=== PATIENT | male | born 1935 | race Caucasian/White ===

== ENCOUNTER → 2017-03-03 | Outpatient (CLI) | payer OTHER ==
[~2017-03-03] MED LIST: ALBU90OI INH; AZIT250 PO; AZIT500 PO; Advil200 M1 PO; BP MED?; Bactrim 400-801 EACH PO; CEFP200 PO; CEPH500 PO; Cardizem CD 24240 MG PO; DILT120 PO; DILT180; DILT300 PO; DUTA.5 PO; ELIQUIS5 MG PO; FAMO20; FLUT1DIS2 INH; GUAI600T33 PO; HIPREX1 GM PO; HYDACE5 PO; LANS30EC; LEVFLO500 PO; LISI5; LISI5 PO; LOSA50 PO; Levaquin750 MG PO; METO100ER PO; NITR.4SL SL; Omeprazole20 M1; PANT20 PO; PRAVASTATIN SOD10 MG PO; PRED10 PO; Prilosec Otc20 MG; TAMS.4ER; TAMS.4ER PO; VALS80
== END | disposition home or self-care (01) ==
LOC: LAB SHORT 10:05
DX: N39.0 Urinary tract infection, site not specified (principal); R30.9 Painful micturition, unspecified
CPT/HCPCS: 87086

== ENCOUNTER → 2017-06-04 | Outpatient (CLI) | payer OTHER ==
[~2017-06-04] MED LIST changes: -AZIT500 PO; -CEFP200 PO; -GUAI600T33 PO; -HIPREX1 GM PO; -NITR.4SL SL; -Omeprazole20 M1
== END ==
LOC: LAB SHORT 16:55 → OLS 16:55 → LAB 16:55
DX: N39.0 Urinary tract infection, site not specified (principal)
CPT/HCPCS: 87077; 87086; 87186

== ENCOUNTER → 2017-07-28 | Outpatient (CLI) | payer OTHER | LOC: LAB SHORT 11:08 → LAB 11:08 | DX: N39.0 Urinary tract infection, site not specified (principal); R30.0 Dysuria | CPT/HCPCS: 87077; 87086; 87186 ==

== ENCOUNTER → 2017-08-06 | Outpatient (CLI) | payer OTHER | LOC: LAB 11:11 → LAB SHORT 11:11 | DX: N39.0 Urinary tract infection, site not specified (principal) | CPT/HCPCS: 87086 ==

== ENCOUNTER → 2017-08-15 | Outpatient (CLI) | payer OTHER ==
[2017-08-15 19:58] LABS: CHOL/HDL RATIO 5.1; Cholesterol 133 mg/dL (50-200); HDL Cholesterol 26 mg/dL (>39); LDL/HDL RATIO 1.3; Low Density Lipoprotein Chol 34 mg/dL (0-110); Triglycerides 366 mg/dL (30-160); Very Low Density Lipoprot Chol 73 mg/dL (6-32)
== END | disposition home or self-care (01) ==
LOC: LAB SHORT 14:45 → LAB 14:45
DX: Z12.5 Encounter for screening for malignant neoplasm of prostate (principal); I25.10 Atherosclerotic heart disease of native coronary artery without angina pectoris
CPT/HCPCS: 80061; G0103

== ENCOUNTER 2017-10-17 05:47 | Day surgery (SDC) | payer OTHER ==
[~2017-10-17] VITALS: Ht 182.9 cm; Wt 113.6 kg
[~2017-10-17 05:47] MED LIST changes: +AZIT500 PO; +CEFP200 PO; +GUAI600T33 PO; +Omeprazole20 M1
[2017-10-17] MEDS ORDERED: HIPREX1 GM PO (06:34)
[2017-10-17] MEDS ORDERED: DILT120 PO (06:34)
[2017-10-17] MEDS ORDERED: NITR.4SL SL (06:35)
== END 2017-10-17 22:41 | disposition home or self-care (01) ==
LOC: MHTC 05:47
PROC: 5A2204Z Restoration of Cardiac Rhythm, Single (ICD-10-PCS; principal; 2017-10-17)
DX: I48.1 Persistent atrial fibrillation (principal); I10 Essential (primary) hypertension; E78.5 Hyperlipidemia, unspecified; Z88.8 Allergy status to other drugs, medicaments and biological substances; Z88.5 Allergy status to narcotic agent; Z88.1 Allergy status to other antibiotic agents; Z79.899 Other long term (current) drug therapy; Z79.01 Long term (current) use of anticoagulants
CPT/HCPCS: 92960; 93005; 93010; 99152; J2250; J3010; J7030

== ENCOUNTER → 2019-02-12 | Outpatient (CLI) | payer OTHER ==
[~2019-02-12] MED LIST changes: +HIPREX1 GM PO; +NITR.4SL SL
== END | disposition home or self-care (01) ==
LOC: EDSTATUS 10:02 → LAB 17:11 → LAB SHORT 17:11
DX: N39.0 Urinary tract infection, site not specified (principal)
CPT/HCPCS: 87086

== ENCOUNTER 2019-06-11 10:04 | Inpatient (IN) | payer OTHER ==
[~2019-06-11] VITALS: Ht 182.9 cm; Wt 119.7 kg
[~2019-06-11 10:04] MED LIST changes: -Omeprazole20 M1; +Omeprazole20 M1 PO
[2019-06-11 10:30] LABS: Hematocrit 39.5 % (37.0-53.0); Hemoglobin 12.2 g/dL (13.5-17.5); Mean Corpuscular HGB 29.3 pg (26.0-34.0); Mean Corpuscular HGB Conc 30.9 g/dL (31.5-36.5); Mean Corpuscular Volume 95 fL (80-100); Mean Platelet Volume 11.7 fL (9.1-12.4); Platelet Count 272 K/mm3 (150-400); RDW Coefficient Variation 13.8 % (11.7-14.2); RDW Standard Deviation 47.9 fL (35.1-46.3); Red Blood Cell Count 4.16 M/mm3 (4.30-5.90); White Blood Cell Count 24.84 K/mm3 (4.00-11.30)
[2019-06-11 10:43] LABS: Alanine Aminotransfer (ALT/SGP 23 U/L (12-78); Albumin, Blood 3.4 g/dL (3.4-5.0); Albumin/Globulin Ratio 1.1 (0.8-1.8); Alk Phos 44 U/L (50-136); Anion Gap 7 mmol/L (6-16); Aspartate Aminotrans (AST/SGOT 20 U/L (12-37); Bilirubin, Total 0.6 mg/dL (0.1-1.0); Blood Urea Nitrogen 51 mg/dL (8-24); Bun/Creatinine Ratio 67.7 (12.0-20.0); CO2, Blood 25 mmol/L (21-32); Calcium, Blood 8.8 mg/dL (8.5-10.1); Chloride, Blood 113 mmol/L (98-108); Creatinine, Blood 0.75 mg/dL (0.60-1.20); Globulin, Blood 3.1 g/dL (2.2-4.0); Glomerular Filtration Rate >60 (60-); Glucose, Blood 169 mg/dL (70-99); Magnesium, Blood 2.4 mg/dL (1.6-2.4); Potassium, Blood 4.6 mmol/L (3.5-5.5); Sodium, Blood 145 mmol/L (136-145); Total Protein, Blood 6.5 g/dL (6.4-8.2); Troponin I <0.015 ng/mL (0.000-0.040)
[2019-06-11 10:45] LABS: International Normalized Ratio 1.13
[2019-06-11 11:11] LABS: BASOPHILS PERCENT MAN 0 % (0-2); EOSINOPHILS ABSOLUTE MAN 0.24 K/mm3 (0.00-0.68); EOSINOPHILS PERCENT MAN 1 % (0-6); LYMPHOCYTES PERCENT MAN 60 % (21-46); MONOCYTES ABSOLUTE MAN 1.24 K/mm3 (0.16-1.47); MONOCYTES PERCENT MAN 5 % (4-13); NEUTROPHILS ABSOLUTE MAN 8.44 K/mm3 (1.96-9.15); SEG NEUTROPHILS PERCENT MAN 34 % (41-73); TOTAL CELLS COUNTED 100
[2019-06-11 11:40] LABS: Source, Urine Voided
[2019-06-11 11:46] LABS: Bilirubin, Urine Neg (Neg); Blood, Urine 4+ (Neg); Glucose Qualitative, Urine Neg (Neg); Ketones, Urine Neg (Neg); Leukocyte Esterase, Urine 3+ (Neg); Nitrite, Urine Neg (Neg); Protein, Urine 2+ (Neg); Urobilinogen, Urine NORM (Normal)
[2019-06-11 11:52] LABS: Appearance, Urine Hazy (Clear); Bacteria Mod /hpf; Color, Urine Yellow (P-Yellow); Red Blood Cells, Urine TNTC /hpf (0-2); Squamous Epithelial Cells Not Seen /hpf (Few); White Blood Cells, Urine TNTC /hpf (0-5)
[2019-06-11] MEDS ORDERED: ALBU2.5V5 NEB (12:19)
[2019-06-11 12:41] LABS: Stool Occult Blood Guaiac 1 Pos (Neg)
[2019-06-11 14:34] LABS: Hematocrit 33.3 % (37.0-53.0); Hemoglobin 10.3 g/dL (13.5-17.5)
[2019-06-11 16:32] LABS: Bilirubin, Urine Neg (Neg); Blood, Urine 4+ (Neg); Glucose Qualitative, Urine Neg (Neg); Ketones, Urine Neg (Neg); Leukocyte Esterase, Urine 3+ (Neg); Nitrite, Urine Neg (Neg); Protein, Urine 2+ (Neg); Source, Urine Catheter; Specific Gravity, Urine 1.015 (1.003-1.022); Urobilinogen, Urine NORM (Normal)
[2019-06-11 16:33] LABS: Appearance, Urine Hazy (Clear); Color, Urine Yellow (P-Yellow)
[2019-06-11 16:42] LABS: White Blood Cells, Urine 50-100 /hpf (0-5)
[2019-06-11 16:43] LABS: Bacteria Many /hpf; Squamous Epithelial Cells Few /hpf (Few)
--- NOTE | 2019-06-11 19:13 | NUR ---
RELINQUISHED PATIENT CARE.
--- NOTE | 2019-06-11 19:17 | NUR ---
PATIENT ARRIVED FROM ED WITH A FIB IN 110S. AFTER GETTING UP AND WALKING TO BATHROOM, HR WENT UP TO 200S AND STAYED IN 180S-190S. DR. VERA NOTIFIED, CARDIZEM DRIP STARTED AND TITRATED TO 10 MG/HR. PATIENT ASYMPTOMATIC THROUGH EPISODE. WITH TITRATION, HR CAME DOWN TO 110S-130S. BP WENT FROM 120 SBP TO 90S SBP. PLAN IS FOR PATIENT TO USE URINAL UNTIL HEART RATE IS WELL CONTROLLED. PATIENT HAD ONE SMALL, TARRY STOOL ONCE HERE IN UNIT. PATIENT IS ALERT AND ORIENTED. NO COMPLAINTS OF SOB, NO CHEST PAIN/PRESSURE. PLAN IS FOR PATIENT TO HAVE SCOPE IN THE MORNING, NPO AT MIDNIGHT.
[2019-06-11 20:15] LABS: Hematocrit 30.5 % (37.0-53.0); Hemoglobin 9.4 g/dL (13.5-17.5)
[2019-06-12 02:10] LABS: Hematocrit 26.4 % (37.0-53.0); Hemoglobin 8.2 g/dL (13.5-17.5); Mean Corpuscular HGB 29.6 pg (26.0-34.0); Mean Corpuscular HGB Conc 31.1 g/dL (31.5-36.5); Mean Corpuscular Volume 95 fL (80-100); Mean Platelet Volume 11.4 fL (9.1-12.4); Platelet Count 207 K/mm3 (150-400); RDW Coefficient Variation 14.4 % (11.7-14.2); RDW Standard Deviation 49.6 fL (35.1-46.3); Red Blood Cell Count 2.77 M/mm3 (4.30-5.90); White Blood Cell Count 21.15 K/mm3 (4.00-11.30)
[2019-06-12 02:29] LABS: Alanine Aminotransfer (ALT/SGP 19 U/L (12-78); Albumin, Blood 2.7 g/dL (3.4-5.0); Albumin/Globulin Ratio 1.1 (0.8-1.8); Alk Phos 29 U/L (50-136); Anion Gap 5 mmol/L (6-16); Aspartate Aminotrans (AST/SGOT 10 U/L (12-37); Bilirubin, Total 0.4 mg/dL (0.1-1.0); Blood Urea Nitrogen 57 mg/dL (8-24); Bun/Creatinine Ratio 69.5 (12.0-20.0); CO2, Blood 25 mmol/L (21-32); Calcium, Blood 8.1 mg/dL (8.5-10.1); Chloride, Blood 116 mmol/L (98-108); Creatinine, Blood 0.82 mg/dL (0.60-1.20); Globulin, Blood 2.4 g/dL (2.2-4.0); Glomerular Filtration Rate >60 (60-); Glucose, Blood 152 mg/dL (70-99); Sodium, Blood 146 mmol/L (136-145); Total Protein, Blood 5.1 g/dL (6.4-8.2)
[2019-06-12 02:35] LABS: BAND PERCENT MAN 1 % (0-8); BASOPHILS PERCENT MAN 0 % (0-2); EOSINOPHILS ABSOLUTE MAN 0.21 K/mm3 (0.00-0.68); EOSINOPHILS PERCENT MAN 1 % (0-6); LYMPHOCYTES PERCENT MAN 44 % (21-46); MONOCYTES ABSOLUTE MAN 0.63 K/mm3 (0.16-1.47); MONOCYTES PERCENT MAN 3 % (4-13); NEUTROPHILS ABSOLUTE MAN 10.99 K/mm3 (1.96-9.15); SEG NEUTROPHILS PERCENT MAN 51 % (41-73); TOTAL CELLS COUNTED 100
--- NOTE | 2019-06-12 05:00 | NUR ---
SHIFT SUMMARY. ORIENTED ALL SHIFT. DOZING ON AND OFF . TROUBLE W/ IV SITES AND DELAYS IN PROTONIX AND THEN INFILTRATED WITHIN SHORT TIME. CARDIZEM AT 10 MG ALL NOC UNTIL 0500 THEN 15 MG. HR. FREQUENTLY AF HR AVERAGES 113-125 WITH VERY SUDDEN BURST IN PERIODS OF RATE TO 150-160. NOTED THE ONE TIME UP TO BSC AND PASSED FLATUS ONLY AFTER HAVING VERY SMALL PINK STREAKED DK BROWN STOOL ON SANCHEZ PAD. NO FURTHER STOOL ALL NOC. AND HR SEEMED UP TO 200 , WITH THIS ACTIVITY. USED URINAL ALL NOC AND HR SPIKE NOT USUALLY RELATED TO EXERTION . NOTED IT DID DROP TO ONE TEENS - 120 VERY QUICKLY. WORE CPAP ALL NOC W/ 2L BLEED IN.WNL SAT. REPORTED PER HOME REQUESTING STAFF TO STRAIGHT CATH HE WAS GOING TO BED.NO URGE TO VOID BUT THIS WAS STANDARD. STRAIGHT CATH RETURNED NO URINE AND BLADDED SCAN CONCURRED NO URINE 16 ML SHOWED . VOIDING QS ALL NOC .NPO ALL NOC.
--- NOTE | 2019-06-12 06:40 | NUR ---
FULL REPORT TO DAY SURGERY AND THEY REPORTED TO SG ABEL THAT VERY LABILE AF HR ON 10-15 MG/ HR CARDIZEm
--- NOTE | 2019-06-12 06:53 | NUR ---
[facility]TO [facility] ADMISSION TO UNIT STARTED. CALL TO DUE TO IRREGULAR PULSE RATE UP TO 150'S PER FLOOR RN WITH ACTIVITY
--- NOTE | 2019-06-12 06:54 | NUR ---
DR STATES HAVE ANNESTHESIA EVALUATE
--- NOTE | 2019-06-12 08:07 | NUR ---
06/12/19 0807 Weston Ferrell See Anesthesia record. Bite Block Placed. History, Chart, Medications and Allergies reviewed before start of procedure. MONITOR INTACT WITH CONTINUOUS PULSE OXIMETRY AND INTERMITTENT BP. O2 VIA N/C INTACT THROUGHOUT SEDATION/PROCEDURE.
[2019-06-12 09:12] LABS: Performing Lab SYMBIODX; Test Name FLOW CYTOMETRY
[2019-06-12 09:44] LABS: Hematocrit 24.2 % (37.0-53.0); Hemoglobin 7.4 g/dL (13.5-17.5)
--- NOTE | 2019-06-12 12:24 | NUR ---
Spiritual care visit conducted. Patient tells me about his medical conditions, his and his bijal (patient attends [facility] in [place]). Patient tells me his concerns about his health. I listen empathically, normalize patient's experience and provide prayer. Patient responds well and shows signs of reduced stress. I will continue to remain available to patient and family.
[2019-06-12 15:08] LABS: Hematocrit 25.3 % (37.0-53.0); Hemoglobin 7.9 g/dL (13.5-17.5)
--- NOTE | 2019-06-12 16:27 | NUR ---
SHIFT SUMMARY PT A&Ox3; CALM AND COOPERATIVE WITH CARE. SBA TO BSC. PT HAD EDG THIS AM; SMALL AMOUNT OF BLACK/MAROON TARRY STOOL NOTIED THIS AM; PT RECIVING 2 UNITS PRBC, APPEARS TO BE TOLERATING WELL. PT DENIES PAIN, SOB, NAUSEA, DIZZINES AND CHEST PAIN/PRESSURE. PT TITRATED OFF CARDIZEM DRIP; HR 90-100'S. BP THIS AM HYPOTENSICE; NOTIFIED DR ABEL; CONTINUES TO WATCH; BP HAS BEEN STABLE FOR MAJORITY OF SHIFT. NOTIIFED DR HERNANDEZ OF 1459 H&H; DR TO PLACE NEW ORDERS. NM STUDY ORDERED; PLANS TO COMPLETE 06/13/19. PICC LINE PLACED DUE TO MULTIPLE INFLITARTED IV AND DIFFICULTY PLACING. OTHER VSS. NO OTHER ACUTE CHANGES NOTED. WILL CONTINUE TO MONITOR UNTIL REPORT GIVEN TO ONCOMING RN.
--- NOTE | 2019-06-12 19:20 | NUR ---
NOTIFIED DR ABEL THAT 2ND UNIT OF PRBC COMPLETED AND THAT LUNG SOUND CRACKLS AND DIMINISHED; NEW ORDERS FOR H&H AT 1999 AND LASIX 40 MG IV ONCE.
--- NOTE | 2019-06-12 20:10 | NUR ---
ASSUMED CARE OF PATIENT AT [facility] 191 FROM FLORY Weiss RN. PATIENT ALERT AND ORIENTED X4; IRRITABLE AT TIMES; REPORTS HASNT SLEPT IN A WHILE. PATIENT DENIES PAIN, NUMBNESS, TINGLING, DIZZINESS OR NASUEA. PATIENT ONE ASSIST TO BEDSIDE COMMODE AND USES URINAL IN BED. PATIENT REPORTS HE NORMALLY STRAIGHT CATHS AT HOME ONCE A NIGHT; BLADDER SCAN 628; HEART RATE UP TO 170'S WITH AMBULATION AT TIMES; DYSPNEA W/ EXCERTION; WILL CALL HOSPITALIST. AFIB ON TELE W/ A RATE OF 90-100; CARDIZEM GTT TITRATED DOWN TO 5ML/HR. OXYGEN SATURATION ABOVE 90% ON ROOM AIR OR 2LPM BLEED INTO CPAP. IVF INFUSING PER ORDER. PICC TO CHAVEZ. PATIENT CURRENTLY RESTING IN BED; CALL LIGHT IN REACH; BED IN LOWEST POSISTION; BED ALARM ON; WILL CONTINUE TO MONITOR AND ASSESS UNTIL END OF SHIFT.
[2019-06-12 20:16] LABS: Hematocrit 24.6 % (37.0-53.0); Hemoglobin 7.8 g/dL (13.5-17.5)
--- NOTE | 2019-06-12 21:50 | NUR ---
DR. ABLE CALLED; H/H FOR 0000; DR. ABEL WILL BE AWAKE TO SEE RESULTS AND WILL PUT IN ORDERS FOR RBC IF DROPS FURTHER; DOWN TO 7.8 AFTER 2X RBC TODAY. ALSO CALLED WIL TUCKER TO REPORT PATIENT STRAIGHT CATHS AT HOME AND INCREASED HR W/ AMBULATION; BLADDER SCAN OF 628 AND DYSPNEA; ORDER FOR COUDE CATHETER.
[2019-06-13 00:42] LABS: Hematocrit 22.5 % (37.0-53.0); Hemoglobin 7.1 g/dL (13.5-17.5)
--- NOTE | 2019-06-13 01:00 | NUR ---
CALLED FOR UPDATE; PATIENT TO RECIEVE 2X RBC WITH 40MG IV LASIX AFTER 2 RBC INFUSED; H/H 30 MIN AFTER LAST RBC INFUSED. NM TO BE CALLED ABOUT GETTING TEST DONE EARLIER IN AM; NURSING CALENDER SUPERVISOR JANIS UPDATED AND WILL CALL NM IN AM WHEN OPEN.
--- NOTE | 2019-06-13 02:35 | NUR ---
PATIENT TEMPORAL TEMP OF 99 DEGREES; REPORTS ROOM IS TOO WARM; TEMPERATURE SET OF FULL A/C FOR AN HOUR WITH NO CHANGE IN ROOM TEMP; MAINTENANCE CALLED.
--- NOTE | 2019-06-13 04:14 | NUR ---
PATIENT TEMP 98.7; OTHER VITAL STABLE; AFIB HEART RATE STARTING TO TOUCH HIGH 80'S ON TELE; ROOM TEMPERATURE COOLER NOW.
--- NOTE | 2019-06-13 05:52 | NUR ---
THIS RN STAYED IN THE ROOM WITH PATIENT FOR FIRST FIFTEEN MINUTES OF BOTH RBC INFUSIONS; NO S/S OF REACTION NOTED. PATIENT SLEPT ABOUT SIX HOURS OF BROKEN SLEEP WITH CPAP ON. VSS. HEART RATE AVERAGING HIGH 80'S. WILL CONTINUE TO MONITOR AND ASSESS UNTIL END OF SHIFT.
--- NOTE | 2019-06-13 06:41 | NUR ---
NM UPDATE; NM WILL CALL PCU AROUND [phone] AND MAY HAVE A TIME FOR STUDY; OVERBOOKED.
--- NOTE | 2019-06-13 07:28 | NUR ---
ASSUMED CARE: PT WAS USING BEDSIDE COMMODE UPON ENTERING ROOM. MAROON STOOL NOTED, RECIEVING UNIT OF BLOOD AT THIS TIME. ALERT AND ORIENTED, COOPERATIVE. CARDIZEM GTT AT 5 MG/HR AT THIS TIME. AFIB 1TEENS AT THIS TIME. NO MAYNARD AT THIS TIME. PT STATES HE DOES NOT HAVE TROUBLE VOIDING DURING THE DAY. WILL CONTINUE TO MONITOR
[2019-06-13 10:12] LABS: Hematocrit 28.1 % (37.0-53.0); Hemoglobin 9.1 g/dL (13.5-17.5)
--- NOTE | 2019-06-13 11:03 | NUR ---
PT TAKEN TO IMAGING AT THIS TIME.
[2019-06-13 13:55] LABS: Hematocrit 26.6 % (37.0-53.0); Hemoglobin 8.6 g/dL (13.5-17.5)
--- NOTE | 2019-06-13 15:02 | NUR ---
PT TAKEN TO IMAGING FOR CT ANGIO. DR ABEL CALLED AND STATED THAT PRIOR IMAGING SHOWED POSSIBLE BLEED IN SMALL INTESTINE AND THAT HE ALREADY SPOKE WITH DR MOORE AND CTA IS HIS RECOMMENDATION FOR POSSIBLE REPAIR. WEALTH MANAGEMENT DIRECTOR AWARE
--- NOTE | 2019-06-13 15:47 | NUR ---
Spiritual care visit conducted. Patient is lying in bed and resting but awakens easily to the sound of his name. Patient tells me that he is improving and will probably get to go home in the next day or two. Patient asks if I would say a prayer for him. I gladly provide prayer for both the patient and his at home. Patient verbalizes gratitude for my visit and the prayer. I will continue to remain available to patient and family.
[2019-06-13 17:34] LABS: Hematocrit 27.7 % (37.0-53.0); Hemoglobin 8.9 g/dL (13.5-17.5)
--- NOTE | 2019-06-13 18:33 | NUR ---
SHIFT SUMMARY: PT HAD BLEEDING STUDY WELL CTA DONE THIS SHIFT. ATTEMPTED TO CALL DR ABEL WITH CTA RESULT. MESSAGE LEFT. CARDIZEM GTT OFF SINCE 1330. PICC LINE DRESSING CHANGED THIS SHIFT. DENIES NEEDS OR CONCERNS. MAROON STOOLS WITH BMS. DR JOYCE AWARE.
--- NOTE | 2019-06-13 22:43 | NUR ---
DR OSCAR MOORE INTO SEE PATIENT. NO NEW ORDERS GIVEN AT THIS TIME.
[2019-06-14 00:58] LABS: Hematocrit 22.9 % (37.0-53.0); Hemoglobin 7.4 g/dL (13.5-17.5)
--- NOTE | 2019-06-14 01:10 | NUR ---
UPDATE DR ZHANG NOTIFIED OF H&H RESULTS. NO ORDERS RECEIVED AT THIS TIME.
--- NOTE | 2019-06-14 06:06 | NUR ---
SHIFT SUMMARY PATIENT PLEASENT AND COOPERATIVE THROUGHOUT THE NIGHT. PATIENT APPEARED TO NAP WELL ON AND OFF LAST NIGHT. PATIENT USED HIS CPAP THROUGHOUT MOST OF THE NIGHT. CONTINUOUS BIOX IN PLACE. PATIENT'S HEART RATE TRENDED IN THE 90'S-110'S LAST NIGHT. IV FLUIDS RUNNING PER ORDERS. PATIENT APPEARED TO BE VOIDING WELL LAST NIGHT. WILL CONTINUE TO MONITOR PATIENT AND REPORT TO ONCOMING RN.
[2019-06-14 06:17] LABS: BASOPHILS ABSOLUTE AUTO 0.04 K/mm3 (0.00-0.23); BASOPHILS PERCENT AUTO 0 % (0-2); EOSINOPHILS ABSOLUTE AUTO 0.32 K/mm3 (0.00-0.68); EOSINOPHILS PERCENT AUTO 2 % (0-6); Hematocrit 21.5 % (37.0-53.0); Hemoglobin 6.9 g/dL (13.5-17.5); Mean Corpuscular HGB 30.1 pg (26.0-34.0); Mean Corpuscular HGB Conc 32.1 g/dL (31.5-36.5); Mean Corpuscular Volume 94 fL (80-100); Mean Platelet Volume 11.6 fL (9.1-12.4); NRBC ABSOLUTE 0.06 K/mm3 (0.00-0.02); NRBC Auto 0.3 /100 WBC (0.0-0.2); Platelet Count 155 K/mm3 (150-400); RDW Coefficient Variation 16.9 % (11.7-14.2); RDW Standard Deviation 55.1 fL (35.1-46.3); Red Blood Cell Count 2.29 M/mm3 (4.30-5.90); White Blood Cell Count 21.77 K/mm3 (4.00-11.30)
[2019-06-14 06:19] LABS: IMMATURE GRAN ABSOLUTE AUTO 0.48 K/mm3 (0.00-0.10); IMMATURE GRAN PERCENT AUTO 2 % (0-1); LYMPHOCYTES ABSOLUTE AUTO 11.99 K/mm3 (0.84-5.20); LYMPHOCYTES PERCENT AUTO 55 % (21-46); MONOCYTES PERCENT AUTO 5 % (4-13); NEUTROPHILS ABSOLUTE AUTO 7.94 K/mm3 (1.96-9.15); NEUTROPHILS PERCENT AUTO 36 % (41-73)
[2019-06-14 06:35] LABS: Alanine Aminotransfer (ALT/SGP 22 U/L (12-78); Albumin, Blood 2.5 g/dL (3.4-5.0); Albumin/Globulin Ratio 1.1 (0.8-1.8); Alk Phos 28 U/L (50-136); Anion Gap 1 mmol/L (6-16); Aspartate Aminotrans (AST/SGOT 18 U/L (12-37); Bilirubin, Total 0.6 mg/dL (0.1-1.0); Blood Urea Nitrogen 48 mg/dL (8-24); Bun/Creatinine Ratio 70.9 (12.0-20.0); CO2, Blood 31 mmol/L (21-32); Calcium, Blood 7.6 mg/dL (8.5-10.1); Chloride, Blood 115 mmol/L (98-108); Creatinine, Blood 0.68 mg/dL (0.60-1.20); Globulin, Blood 2.3 g/dL (2.2-4.0); Glomerular Filtration Rate >60 (60-); Glucose, Blood 144 mg/dL (70-99); Potassium, Blood 3.7 mmol/L (3.5-5.5); Sodium, Blood 147 mmol/L (136-145); Total Protein, Blood 4.8 g/dL (6.4-8.2)
--- NOTE | 2019-06-14 06:55 | NUR ---
UPDATE DR JOYCE AWARE OF PATIENT'S H&H RESULTS. ORDERS ENTERED.
--- NOTE | 2019-06-14 07:38 | NUR ---
ASSUMED CARE: PT RESTING IN BED AT THIS TIME. CONTACTED DR MOORE TO DETERMINE PLAN. STATES TO FEED BREAKFAST THEN NPO AFTER. PT TO RECIEVE 2 UNITS PRBCS WELL.
--- NOTE | 2019-06-14 13:51 | NUR ---
TELE CALLED AND STATED PT'S HR INCREASING INTO 170S-190S. PT WAS USING URINAL AT THIS TIME. 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 DISCUSSED WITH CIRCULAR CLERK.
--- NOTE | 2019-06-14 17:51 | NUR ---
PT TAKEN TO CENTERLESS GRINDER SET UP OPERATOR AT THIS TIME. ESCORTED VIA BED BY HEART CENTER STAFF.
--- NOTE | 2019-06-14 19:10 | NUR ---
PT TRANSFERRED FROM PEDIATRICS PHYSICIAN TO ICU 10 VIA BED WITH MARIE AT BEDSIDE. PT HAS R GROIN 6 FR ART LINE IN PLACE. MONIOTR SHOWS AFIB RVR WITH HR 120'S. PT STATES HE FEEL S FINE, JUST A BIT THIRSTY. WILL CALL TO GIVE AN UPDATE. REPORT TO VIELKA RUDOLPH.
--- NOTE | 2019-06-14 20:13 | NUR ---
ASSUMED PT CARE AT 1915 PT ARRIVED FROM ROOM SERVICE WAITER/WAITRESS S/P SHEATH PLACEMENT TO RIGHT GROIN FOR ARTERIAL ACCESS. PER REPORT BLEED IS UNKNOWN AT THIS TIME. PT CLAIMS HIS LAST BLOODY STOOL WAS AROUND 1300 TODAY. VS STABLE AT THIS TIME. RHYTHM APPEARS TO BE AFIB WITH HR 110-130S; INCREASES WITH ANY MOVEMENT OR EXERTION. PT STATES HE TAKES ELIQUIS AT HOME FOR HIS AFIB. PT IS ON ROOM AIR WITH EXPIRATORY WHEEZES NOTED T/O ALL LOBES; OTHERWISE, CLEAR. ABDOMEN IS ROUND, SOFT WITH ACTIVE BTX4. MINIMAL, NON-PITTING EDEMA NOTED TO BLE'S. GENERALIZED EDEMA TO BUE'S. PICC LINE NOTED TO RIGHT UPPER ARM THAT IS SALINE LOCKED AT THIS TIME. PT STATES HE IS CONTINENT OF BLADDER AND WILL ASK FOR URINAL HE NEEDS IT. HOWEVER, HE DID STATE AT HOME HE OCCASIONALLY HAS TO SELF CATH AT NIGHT D/T URINARY RETENTION; WILL CONTINUE TO MONITOR AND ASSESS ON AN ONGOING BASIS. CHARGE NURSE, ABEL, CALLED AND UPDATED REGARDING PT'S STATUS. PT GRATEFUL AND HAS BEEN PLEASANT AND COOPERATIVE WITH CARES. DEMONSTRATES UNDERSTANDING OF CURRENT NAT CONDITION AND HAS NO FURTHER QUESTIONS. PLAN OF CARE EXPLAINED TO PT WITH VERBAL UNDERSTANDING. CALL LIGHT WITHIN REACH AND PT IS ABLE TO MAKE NEEDS KNOWN.
[2019-06-14 20:24] LABS: Hematocrit 25.4 % (37.0-53.0); Hemoglobin 8.5 g/dL (13.5-17.5)
[2019-06-14 21:30] LABS: Source, Urine Catheter
[2019-06-14 21:38] LABS: Appearance, Urine Clear (Clear); Bilirubin, Urine Neg (Neg); Blood, Urine 2+ (Neg); Color, Urine Yellow (P-Yellow); Glucose Qualitative, Urine Neg (Neg); Ketones, Urine Neg (Neg); Leukocyte Esterase, Urine 2+ (Neg); Nitrite, Urine Neg (Neg); Protein, Urine Neg (Neg); Specific Gravity, Urine 1.015 (1.003-1.022); Urobilinogen, Urine NORM (Normal)
[2019-06-14 21:45] LABS: Bacteria Many /hpf; Hyaline Casts 0-2 /lpf (0-2); Squamous Epithelial Cells Not Seen /hpf (Few); White Blood Cells, Urine 50-100 /hpf (0-5)
[2019-06-15 03:36] LABS: Hematocrit 24.2 % (37.0-53.0); Hemoglobin 7.9 g/dL (13.5-17.5); Mean Corpuscular HGB 30.4 pg (26.0-34.0); Mean Corpuscular HGB Conc 32.6 g/dL (31.5-36.5); Mean Corpuscular Volume 93 fL (80-100); Mean Platelet Volume 11.4 fL (9.1-12.4); NRBC ABSOLUTE 0.09 K/mm3 (0.00-0.02); NRBC Auto 0.4 /100 WBC (0.0-0.2); Platelet Count 152 K/mm3 (150-400); RDW Standard Deviation 51.3 fL (35.1-46.3); White Blood Cell Count 22.39 K/mm3 (4.00-11.30)
[2019-06-15 03:56] LABS: Alanine Aminotransfer (ALT/SGP 21 U/L (12-78); Albumin, Blood 2.6 g/dL (3.4-5.0); Albumin/Globulin Ratio 1.1 (0.8-1.8); Alk Phos 29 U/L (50-136); Anion Gap 4 mmol/L (6-16); Aspartate Aminotrans (AST/SGOT 19 U/L (12-37); BASOPHILS PERCENT MAN 0 % (0-2); Bilirubin, Total 0.9 mg/dL (0.1-1.0); Blood Urea Nitrogen 35 mg/dL (8-24); Bun/Creatinine Ratio 53.4 (12.0-20.0); CO2, Blood 28 mmol/L (21-32); Calcium, Blood 7.5 mg/dL (8.5-10.1); Chloride, Blood 113 mmol/L (98-108); Creatinine, Blood 0.66 mg/dL (0.60-1.20); EOSINOPHILS ABSOLUTE MAN 0.44 K/mm3 (0.00-0.68); EOSINOPHILS PERCENT MAN 2 % (0-6); Globulin, Blood 2.3 g/dL (2.2-4.0); Glomerular Filtration Rate >60 (60-); Glucose, Blood 141 mg/dL (70-99); LYMPHOCYTES ABSOLUTE MAN 7.83 K/mm3 (0.84-5.20); LYMPHOCYTES PERCENT MAN 35 % (21-46); METAMYELOCYTE ABSOLUTE MAN 0.22 K/mm3 (0.00-0.00); METAMYELOCYTE PERCENT MAN 1 % (0-0); MONOCYTES ABSOLUTE MAN 0.44 K/mm3 (0.16-1.47); MONOCYTES PERCENT MAN 2 % (4-13); NEUTROPHILS ABSOLUTE MAN 13.43 K/mm3 (1.96-9.15); Potassium, Blood 3.3 mmol/L (3.5-5.5); SEG NEUTROPHILS PERCENT MAN 60 % (41-73); Sodium, Blood 145 mmol/L (136-145); TOTAL CELLS COUNTED 100; Total Protein, Blood 4.9 g/dL (6.4-8.2)
--- NOTE | 2019-06-15 05:41 | NUR ---
END OF SHIFT SUMMARY PT HAS REMAINED STABLE T/O NIGHT. SHEATH TO RIGHT GROIN REMAINS IN PLACE WITH STABLE BP'S; SEE FLOWSHEET. AFIB WITH HR 80-90'S WHEN PT IS SLEEPING AND LOW 100'S-110'S WHILE AWAKE. PT IS ALERT AND ORIENTED AND ABLE TO MAKE NEEDS KNOWN. UTILIZES CALL LIGHT APPROPRIATELY. LUNG SOUNDS REMAIN CLEAR UPON INSPIRATION T/O ALL LOBES WITH EXPIRATORY WHEEZES. NO COUGH. PT STATES AT BASELINE HE HAS A DRY, NON-PRODUCTIVE COUGH R/T COPD. ABDOMEN IS ROUND, NON-TENDER WITH ACTIVE BTX4. NO BM THIS SHIFT. PT ATTEMPTED ONCE AND WAS UNSUCCESSFUL. WHEN PERFORMING RAMBO CARE IT WAS NOTED THAT PT HAS BROWN/GREEN STOOL, POSSIBLY FROM FLATULENCE, THAT WAS CLEANED FROM HIS RECTAL AREA. CATHETER HAS REMAINED PATENT AND DRAINING TO GRAVITY; DARK, ISELA COLORED URINE. NO STAT LOCK IN PLACE D/T CATHETER LENGTH NOT LONG ENOUGH SO SAFELY SECURE TO INNER LEG WITHOUT TUGGING ON CATHETER ITSELF. 0.45% NS INFUSING AT 75MLS/HR VIA PICC LINE TO CHAVEZ. PT IS ABLE TO MAKE SLIGHT CHANGES IN HIPS; HOWEVER, REQUIRES ASSISTANCE WITH PROPER PILLOW POSITIONING TO RELIEVE PRESSURE FROM BACK AND BOTTOM. PT DIDN'T SLEEP MUCH OF THE NIGHT D/T BEING UNCOMFORTABLE FROM HAVING TO REMAIN SUPINE SECONDARY TO SHEATH IN RIGHT GROIN. PT IS CURRENTLY SLEEPING. WILL CONTINUE TO MONITOR UNTIL REPORT IS HANDED OFF TO ONCOMING RN.
--- NOTE | 2019-06-15 07:44 | NUR ---
ASSUMED CARE OF PATIENT AT 0715. AROUSES TO SPEECH, SLEPT POORLY O/N. AFEBRILE, VSS. RESP EVEN AND UNLABORED. HR IRREGULAR, RATE IN 80'S. CHAVEZ PICC SITE WITH ECCHYMOSIS AROUND INSERTION SITE. SIMILAR ECCHYMOSIS ON BALJIT. R FEM ART LINE SITE WNL, SOFT, NO ERYTHEMA. WEARING SCD'S. PLAN IS NPO AFTER 0930 FOR REPEAT EGD THIS AFTERNOON.
--- NOTE | 2019-06-15 08:18 | NUR ---
BP CHECKED ON LA COINCIDES WITH R FEM ART LINE BP.
--- NOTE | 2019-06-15 09:13 | NUR ---
SPOKE TO DR. MOORE BY PHONE, ASKED IF ART IS NOT NEEDED WOULD LIKE TO REMOVE IT. HE STATED THAT ART LINE LEFT IN PER DR. ABEL AND TO DIRECT ALL QUESTIONS TO THAT PROVIDER.
--- NOTE | 2019-06-15 09:35 | NUR ---
PT'S POTASSIUM LEVEL 3.3 ON THIS MORNING'S LABS. CALLED DR. ROMO'S OFFICE, LEFT MESSAGE TO REQUEST POTASSIUM REPLACEMENT.
--- NOTE | 2019-06-15 09:39 | NUR ---
SPOKE TO DR. ABEL BY PHONE, REPORTED THAT PT HEMODYNAMICALLY STABLE O/N, HGB DROPPED FROM 8.[address] BEYER HAS NO PLANS TO USE THE LINE FURTHER. DR. ABEL GAVE VERBAL ORDER OK TO REMOVE ART LINE.
--- NOTE | 2019-06-15 12:20 | NUR ---
REASSESSMENT: A&O X 3, PLEASANT, IS EAGER FOR EGD TODAY. AFIB HR 90-110, BP 110-130/50-65. HELPS WITH REPOSITIONING. LUNGS CLEAR WITH FAINT EXP WHEEZE IN UPPER LOBES, O2 SAT 95% RA, IN NAD. NO BM THUS FAR TODAY, BS ACTIVE X 4, DENIES ABD DISCOMFORT, IS PASSING FLATUS. DENIES PAIN OVERALL. IS NPO FOR EGD THIS AFTERNOON.
--- NOTE | 2019-06-15 14:39 | NUR ---
Initial palliative care consult: Claude is an 84 year old gentleman with a history of a-fib, COPD, neurogenic bladder with self cath, HTN, JAMAL. He was admitted to [facility] on 06/11/19. He was noted to have some GI bleeding which has been investigated and treated. Claude states he is feeling "On the mend" and denies any recurrent bleeding as far as he can tell. He reports he is to have a follow up test this afternoon to evaluate his GI bleed. He is hopeful to return home soon. He reports he had a GI bleed in the and had surgery to stop the bleed. He is unsure what his bleed was caused from back then. He states he lives with his , Jesús, of 61 years. They plan to remain "As independent as possible for as long as possible." He reports they were never "Blessed with children," he reports his suffered four miscarriages. He reports they both still drive, although he doesn't drive at night due to his macular degeneration. He denies any SOB, CP or N/V at this time. He denies any symptoms at this time. Had a discussion on code status with Claude. He is a full code and reports that he and his have some paperwork at home which he thinks might be advanced directives. When this underwriter mortgage loan explained what the AD was, he said that it sounded familiar. He states that he doesn't think he has a POLST form. Contacted medical records at [facility] as Dr. Yury Anderson is his PCP. [facility] doesn't have any AD or POLST on file. LM on the secure [place] POLST registry line to see if they have a POSLT form on file. Claude states he would look into the paperwork he has at home when he returns home. PC will continue to follow for symptom management and advanced care planning prn.
--- NOTE | 2019-06-15 17:02 | NUR ---
PATIENT TRANSFERRED TO DAY SURGERY AT 1659 VIA [facility] WITH DAY SURGERY RN FOR EGD. WILL TRANSFER TO PCU 13 AFTER PROCEDURE. REPORT GIVEN TO NORMAN RUDOLPH.
--- NOTE | 2019-06-15 17:19 | NUR ---
History, Chart, Medications and Allergies reviewed before start of procedure.Lungs clear T/O to Auscultation. Patient confirms NPO status and agrees with scheduled surgery. PT HAD ART LINE REMOVED OUT OF R GROIN. DRESSING CDI. DR ABEL AWARE THAT IT WAS PULLED AT 1300.
--- NOTE | 2019-06-15 18:18 | NUR ---
06/15/19 1818 LOBITO DEWEY History, Chart, Medications and Allergies reviewed before start of procedure. 3-LEAD EKG REVIEWED WITH PHYSICIAN PRIOR TO START OF PROCEDURE. O2 VIA N/C INTACT THROUGHOUT SEDATION/PROCEDURE. MONITOR INTACT WITH CONTINUOUS PULSE OXIMETRY AND INTERMITTENT BP. MAC WITH DR. STAPLETON.
[2019-06-16 04:44] LABS: BASOPHILS ABSOLUTE AUTO 0.04 K/mm3 (0.00-0.23); BASOPHILS PERCENT AUTO 0 % (0-2); EOSINOPHILS ABSOLUTE AUTO 0.32 K/mm3 (0.00-0.68); EOSINOPHILS PERCENT AUTO 2 % (0-6); Hematocrit 25.2 % (37.0-53.0); Hemoglobin 8.1 g/dL (13.5-17.5); IMMATURE GRAN ABSOLUTE AUTO 0.49 K/mm3 (0.00-0.10); IMMATURE GRAN PERCENT AUTO 3 % (0-1); LYMPHOCYTES ABSOLUTE AUTO 8.59 K/mm3 (0.84-5.20); LYMPHOCYTES PERCENT AUTO 47 % (21-46); MONOCYTES ABSOLUTE AUTO 0.84 K/mm3 (0.16-1.47); MONOCYTES PERCENT AUTO 5 % (4-13); Mean Corpuscular HGB 30.7 pg (26.0-34.0); Mean Corpuscular HGB Conc 32.1 g/dL (31.5-36.5); Mean Corpuscular Volume 96 fL (80-100); Mean Platelet Volume 11.7 fL (9.1-12.4); NEUTROPHILS ABSOLUTE AUTO 7.85 K/mm3 (1.96-9.15); NEUTROPHILS PERCENT AUTO 43 % (41-73); NRBC ABSOLUTE 0.05 K/mm3 (0.00-0.02); NRBC Auto 0.3 /100 WBC (0.0-0.2); Platelet Count 145 K/mm3 (150-400); RDW Coefficient Variation 17.6 % (11.7-14.2); RDW Standard Deviation 52.1 fL (35.1-46.3); Red Blood Cell Count 2.64 M/mm3 (4.30-5.90); White Blood Cell Count 18.13 K/mm3 (4.00-11.30)
[2019-06-16 04:59] LABS: Albumin, Blood 2.4 g/dL (3.4-5.0); Anion Gap 4 mmol/L (6-16); Blood Urea Nitrogen 25 mg/dL (8-24); Bun/Creatinine Ratio 39.7 (12.0-20.0); CO2, Blood 29 mmol/L (21-32); Calcium, Blood 7.5 mg/dL (8.5-10.1); Chloride, Blood 112 mmol/L (98-108); Creatinine, Blood 0.63 mg/dL (0.60-1.20); Glomerular Filtration Rate >60 (60-); Glucose, Blood 106 mg/dL (70-99); Magnesium, Blood 2.2 mg/dL (1.6-2.4); Potassium, Blood 3.4 mmol/L (3.5-5.5); Sodium, Blood 145 mmol/L (136-145)
[2019-06-16 05:02] LABS: BAND PERCENT MAN 1 % (0-8); BASOPHILS PERCENT MAN 0 % (0-2); EOSINOPHILS ABSOLUTE MAN 0.36 K/mm3 (0.00-0.68); EOSINOPHILS PERCENT MAN 2 % (0-6); LYMPHOCYTES PERCENT MAN 48 % (21-46); METAMYELOCYTE ABSOLUTE MAN 0.18 K/mm3 (0.00-0.00); METAMYELOCYTE PERCENT MAN 1 % (0-0); MONOCYTES ABSOLUTE MAN 0.72 K/mm3 (0.16-1.47); MONOCYTES PERCENT MAN 4 % (4-13); MYELOCYTE ABSOLUTE MAN 0.18 K/mm3 (0.00-0.00); MYELOCYTE PERCENT MAN 1 % (0-0); NEUTROPHILS ABSOLUTE MAN 7.97 K/mm3 (1.96-9.15); SEG NEUTROPHILS PERCENT MAN 43 % (41-73); TOTAL CELLS COUNTED 100
--- NOTE | 2019-06-16 05:58 | NUR ---
Shift Summary Pt arrived to PCU 13 at 1934 on 06/15 from day surgery (PT previously in ICU). Pt arrived on with Day Surgery RN, Ghazal, at bedside. Bedside report recieved and pt slide transferred into PCU 13 bed without difficulty. Pt drowsy but easily arrousable to verbal stimulus. Breathing even and unlabored on RA. VSS. Pt conversing appropriately, asking questions about procedure and retaining/recalling information accurately. This RN spoke with pt's and gave update. Pt also able to speak with . Dr. Rae called this RN and ordered 1uPRBC. Infusion completed per protocol with two RN verification. This RN remained with pt during first 15 minutes and obtained frequent vital signs. Pt exhibited no signs of transfusion reaction. Lung sounds assessed before, during, and after blood administration. Slight exp wheeze noted upon assessment, unchanged during infusion. Pt denies shortness of breath, itching, or rash. Normothermic. All VSS. Pt wore CPAP on and off throughout night. Pt states "i wear my CPAP at home but this one doesn't fit my face right". 1L LR infused per orders and NS and KCL infusing at this time per orders. Greer cath present upon transfer and placed for retention per report. No changes from initial assessment. Pt sleeping at this time. Able to take all medications whole with water. Will continue to monitor.
--- NOTE | 2019-06-16 06:28 | NUR ---
RIGHT HAND IV INFILTRATED. PIV REMOVED, ARM ELEVATED. EDEMA NOTED, NOT PITTING AT THIS TIME. PT INFORMED. DENIES PAIN. WILL CONTINUE TO MONITOR.
--- NOTE | 2019-06-16 10:31 | NUR ---
PT WAS ASSISTED TO THE BATHROOM BY THE RADIO MACHINIST, HEART MONITOR SHOWS INCREASED HEART RATE 150'S-200'S, PT MADE IT TO THE BATHROOM HAD A BOWEL MOVEMENT AND ASSISTED BACK TO BED. PT WAS NOT C/O ANY CHEST PAIN/PRESSURE OR DIZZINESS/FAINTING. DR REYNOSO WAS CALLED RECEIVED ORDER FOR EKG 12 LEAD, TO GIVE ONE TIME 20MG BOLUS OF CARDIZEM IF HR IS NOT GOING DOWN AND TO START ON TITRATING DOSE OF CARDIZEM DRIP 0-15MG/HR. ECG DONE AND SHOWED AFIB RVR HEART RATE WENT DOWN TO 100'S-120'S, PROVIDER WAS UPDATED ORDER TO CANCEL BOLUS AND START TITRATING DOSE OF CARDIZEM DRIP. BP SYSTOLIC AT 120'S, PT IS NOW RESTING IN BED WITH NO COMPLAINS. WILL MONITOR
--- NOTE | 2019-06-16 13:02 | NUR ---
PT ASSISTED IN THE BATHROOM AT THIS TIME, HR INCREASED TO 150'S CARDIZEM DRIP AT 10MG/HR RESTING HEART RATE RANGING 90'S-110'S, PT DENIES ANY CHEST PAIN/PRESSURE, SYSTOLIC BP'S 130'S, THE REST OF THE VITALS WNL. WILL MONITOR PATIENT
--- NOTE | 2019-06-16 18:15 | NUR ---
PT SUMMARY: PT CARDIZEM DRIP OFF AROUNG 1600 PT HRR RANGING 70'S-90'S, STILL INCREASES WITH EXERTION, PT HAD THERAPY TODAY WAS ABLE TO AMBULATE IN THE ROOM, PT DENIES ANY CHEST PAIN/PRESSURE. PT PLAN TO STAY COUPLE MORE DAYS FOR OBSERVATION FOR GI BLEED ISSUE. PT CURRENTLY RESTING IN BED SATS HAS BEEN ABOVE 97% ON ROOMAIR, SOB/EXPIRATORY WHEEZE WITH EXERTION. ABLE TO MAKE NEEDS KNOWN WILL MONITOR, WILL REPORT TO ONCOMING NURSE
[2019-06-17 05:12] LABS: Hematocrit 24.9 % (37.0-53.0); Hemoglobin 7.9 g/dL (13.5-17.5); Mean Corpuscular HGB 31.1 pg (26.0-34.0); Mean Corpuscular HGB Conc 31.7 g/dL (31.5-36.5); Mean Corpuscular Volume 98 fL (80-100); Mean Platelet Volume 11.9 fL (9.1-12.4); NRBC ABSOLUTE 0.04 K/mm3 (0.00-0.02); NRBC Auto 0.3 /100 WBC (0.0-0.2); Platelet Count 148 K/mm3 (150-400); RDW Coefficient Variation 18.4 % (11.7-14.2); RDW Standard Deviation 54.2 fL (35.1-46.3); Red Blood Cell Count 2.54 M/mm3 (4.30-5.90); White Blood Cell Count 14.68 K/mm3 (4.00-11.30)
--- NOTE | 2019-06-17 05:24 | NUR ---
SHIFT SUMMARY: JAYMIE RESTED COMFORTABLY FOR THE MAJORITY OF THE SHIFT. A&O X 4. HE USED HIS CPAP FOR PART OF THE NIGHT, ABLE TO MANAGE IT ON HIS OWN. HE IS TOLERATING PO INTAKE WELL. PICC TO RUE PATENT, FLUIDS INFUSING. HE IS ABLE TO REPOSITION HIMSELF IN BED INDEPENDENTLY. MAYNARD PATENT, GOOD URINE OUTPUT OVERNIGHT. VSS, NO ACUTE EVENTS OVERNIGHT. HEMOGLOBIN WITH SLIGHT DROP FROM 8.1 TO 7.9. CONTINUOUS PULSE OX IN PLACE. TELE SHOWS A-FIB W/PVCS. HR HAS RANGED FROM 80s to 90s WITH OCCASIONAL RATES INTO THE 100s. HE DENIES ANY CHEST PAIN OR SOB. DILTIAZEM DRIP ORDERED PRN. HE DID WORK WITH PT YESTERDAY WHO RECOMMENDS HOME HEALTH UPON DISCHARGE. HE IS A STANDBY ASSIST WITH A FWW. HE USES HIS CALL LIGHT APPROPRIATELY. HE IS PLEASANT AND COOPERATIVE. WILL REPORT TO DAY SHIFT RN.
[2019-06-17 05:33] LABS: Albumin, Blood 2.3 g/dL (3.4-5.0); Anion Gap 4 mmol/L (6-16); Blood Urea Nitrogen 16 mg/dL (8-24); Bun/Creatinine Ratio 25.2 (12.0-20.0); CO2, Blood 30 mmol/L (21-32); Calcium, Blood 7.5 mg/dL (8.5-10.1); Chloride, Blood 111 mmol/L (98-108); Creatinine, Blood 0.63 mg/dL (0.60-1.20); Glomerular Filtration Rate >60 (60-); Glucose, Blood 136 mg/dL (70-99); Magnesium, Blood 2.1 mg/dL (1.6-2.4); Phosphorus, Blood 2.8 mg/dL (2.5-4.9); Potassium, Blood 3.8 mmol/L (3.5-5.5); Sodium, Blood 145 mmol/L (136-145)
[2019-06-17 05:53] LABS: BASOPHILS PERCENT MAN 0 % (0-2); EOSINOPHILS ABSOLUTE MAN 0.14 K/mm3 (0.00-0.68); EOSINOPHILS PERCENT MAN 1 % (0-6); LYMPHOCYTES ABSOLUTE MAN 6.01 K/mm3 (0.84-5.20); LYMPHOCYTES PERCENT MAN 41 % (21-46); METAMYELOCYTE ABSOLUTE MAN 0.29 K/mm3 (0.00-0.00); METAMYELOCYTE PERCENT MAN 2 % (0-0); MONOCYTES ABSOLUTE MAN 1.17 K/mm3 (0.16-1.47); MONOCYTES PERCENT MAN 8 % (4-13); MYELOCYTE ABSOLUTE MAN 0.14 K/mm3 (0.00-0.00); MYELOCYTE PERCENT MAN 1 % (0-0); NEUTROPHILS ABSOLUTE MAN 6.89 K/mm3 (1.96-9.15); SEG NEUTROPHILS PERCENT MAN 47 % (41-73); TOTAL CELLS COUNTED 100
--- NOTE | 2019-06-17 10:23 | NUR ---
PT HEART RATE INCREASED AGAIN TODAY UPON GOING TO THE BATHROOM TO USE THE TOILET, PT ENCOURAGED TO USE COMMODE FROM NOW ON. HRR REPORTED AFIB ON THE 200'S WITH EXERTION, WHEN PT GOT BACK IN BED HR TREND DOWN TO 140'S, PT COMPLAINING THIS TIME OF BEING SHAKY AND PALPITATIONS, PT STARTED ON CARDIZEM DRIP @10MG/HR, HR RIGHT NOW ON THE 100'S, PT STATED HE FELT A LOT BETTER. DR ROMO MADE AWARE OF THE SITUATION. ALSO PT HAD MEDIUM BOWEL MOVEMENT FORMED IN APPEARANCE, BLACK BROWN IN COLOR, DR. ROMO ALSO MADE AWARE ABOUT THE STOOL D/T GI BLEED. PT CURRENTLY RESTING IN BED, THE REST OF THE VITALS REMAINED STABLE. CALL LIGHTS WITHIN REACH WILL MONITOR
--- NOTE | 2019-06-17 18:02 | NUR ---
SHIFT SUMMARY: PT STILL ON CARDIZEM GTT AT 5 MG/HR AT THIS TIME, PT HRR AFIB RANGING 80'S-90'S. PT DENIES ANY CHEST PAIN/PRESSURE BP SYSTOLIC 130'S THE REST OF THE VITALS ARE STABLE. METOPROLOL DOSE INCREASED TO 75MG BID FOR HR, PT HR STILL INCREASED UP TO 170'S WTIH EXERTION UPON USING THE COMMODE. PT ALSO HAS SOME EXPIRATORY WHEEZING DR ROMO ALSO ORDERED BREATHING TX, PT MADE AWARE THAT HE CAN HAVE HIS BREATHING TX NEEDED FIRST TIME WAS OFFERED PT REFUSED BUT WAS ENCOURAGED IT MIGHT HELP WITH HIS BREATHING AND HR, PT AGREED, BREATHING TX RECEIVED PER RT, PT REPORTED EFFECTIVENESS. LABS ORDERED IN AM, WILL REPORT TO ONCOMING SHIFT.
[2019-06-18 04:34] LABS: BASOPHILS ABSOLUTE AUTO 0.02 K/mm3 (0.00-0.23); BASOPHILS PERCENT AUTO 0 % (0-2); EOSINOPHILS ABSOLUTE AUTO 0.21 K/mm3 (0.00-0.68); EOSINOPHILS PERCENT AUTO 1 % (0-6); Hematocrit 21.7 % (37.0-53.0); Hemoglobin 6.8 g/dL (13.5-17.5); IMMATURE GRAN ABSOLUTE AUTO 0.33 K/mm3 (0.00-0.10); IMMATURE GRAN PERCENT AUTO 2 % (0-1); LYMPHOCYTES PERCENT AUTO 45 % (21-46); MONOCYTES ABSOLUTE AUTO 0.87 K/mm3 (0.16-1.47); MONOCYTES PERCENT AUTO 6 % (4-13); Mean Corpuscular HGB 31.2 pg (26.0-34.0); Mean Corpuscular HGB Conc 31.3 g/dL (31.5-36.5); Mean Corpuscular Volume 100 fL (80-100); Mean Platelet Volume 12.2 fL (9.1-12.4); NEUTROPHILS ABSOLUTE AUTO 7.06 K/mm3 (1.96-9.15); NEUTROPHILS PERCENT AUTO 46 % (41-73); NRBC ABSOLUTE 0.03 K/mm3 (0.00-0.02); NRBC Auto 0.2 /100 WBC (0.0-0.2); Platelet Count 152 K/mm3 (150-400); RDW Coefficient Variation 18.6 % (11.7-14.2); RDW Standard Deviation 60.3 fL (35.1-46.3); Red Blood Cell Count 2.18 M/mm3 (4.30-5.90); White Blood Cell Count 15.39 K/mm3 (4.00-11.30)
[2019-06-18 04:49] LABS: Albumin, Blood 2.2 g/dL (3.4-5.0); Anion Gap 3 mmol/L (6-16); Blood Urea Nitrogen 17 mg/dL (8-24); Bun/Creatinine Ratio 27.1 (12.0-20.0); CO2, Blood 29 mmol/L (21-32); Calcium, Blood 7.6 mg/dL (8.5-10.1); Chloride, Blood 112 mmol/L (98-108); Creatinine, Blood 0.63 mg/dL (0.60-1.20); Glomerular Filtration Rate >60 (60-); Glucose, Blood 132 mg/dL (70-99); Phosphorus, Blood 3.2 mg/dL (2.5-4.9); Potassium, Blood 3.8 mmol/L (3.5-5.5); Sodium, Blood 144 mmol/L (136-145)
--- NOTE | 2019-06-18 06:38 | NUR ---
SHIFT SUMMARY: JAYMIE IS A&O X4, ABLE TO STATE HIS NAME, , WHERE HE IS, WHY HE IS HOSPITALIZED, THE DATE (ACCURATE WITHIN ONE DAY), AND ACCURATELY IDENTIFIES THE PRESIDENT. HE IS TOLERATING PO INTAKE WELL, STANDBY ASSIST TO THE BEDSIDE COMMODE. HE DOES REPORT THAT HE HAD ONE EPISODE OF DIZZINESS YESTERDAY WHEN HE GOT UP TO USE THE COMMODE. CARDIZEM DRIP RUNNING AT 5 ML/HR, HR IN 80s AND 90s, OCCASIONAL INCREASES TO THE 100s. HEMOGLOBIN 6.8 THIS AM, ORDER FOR 1 UNIT PRBCs. DISCUSSED PLAN TO ADMINISTER BLOOD WITH PATIENT, HE IS AMENDABLE. PT REFUSED CPAP LAST NIGHT, OCCASIONAL SHORT TERM DESATURATIONS TO 88% WHICH RESOLVED WITHOUT INTERVENTION. FLUIDS INFUSING TO PICC IN RUE. HE USES HIS CALL LIGHT APPROPRIATELY. WILL REPORT TO DAY SHIFT RN.
--- NOTE | 2019-06-18 11:39 | NUR ---
PT RECEIVED 1PRBC THIS AM, VITALS HAS BEEN STABLE, HRR STILL AFIB ON THE 80'S-100'S CARDIZEM DRIP STOPPED, PT HAS NOT BEEN C/O CHEST PAIN/PRESSURE. CALLED DR. GREENE ORDER RECEIVED FOR FOLLOW-UP H&H AWAITING FOR RESULT, PT HAS NOT REPORTED BOWEL YET, NO ACTIVE BLEEDING NOTED. PT HAS BEEN RESTING IN BED, ABLE TO MAKE NEEDS KNOWN WILL MONITOR
[2019-06-18 12:24] LABS: Hemoglobin 7.4 g/dL (13.5-17.5)
--- NOTE | 2019-06-18 15:12 | NUR ---
PT NOW RESTING IN BED, INGOT CAR OPERATOR REPORTED PT USED THE COMMODE ONCE AND HR WENT UP AGAIN TO 170'S, PT WENT BACK TO BED HR TREND DOWN TO 90'S. PT DENIES ANY CHEST PAIN/PRESSURE. PT WAS SEEN BY DR GREENE TODAY, HGB CAME BACK UP TO 7.4 ADVISED TO GET RE-EVALUATED AGAIN BY GI DR SINCE PT DOESN'T HAVE ANY OBVIOUS ACTIVE BLEEDING, CALLED DR ABEL'S OFFICE AND LEFT A MESSAGE, AWAITING FOR CALL BACK GUAIAC STOOL ALSO ORDERED BY DR GREENE.
--- NOTE | 2019-06-18 17:18 | NUR ---
PT CURRENTLY INFUSING ON 2ND PRBC PER ORDER. DR ABEL CALLED BACK AND INFORMED THIS RN ABOUT HIS DISCUSSION WITH DR MOORE REGARDING PT'S STATUS, DR MOORE TO DO ANGIO AGAIN IN THE AM PT TO BE NPO AFTER MIDNIGHT. PT TOLERATING THE INFUSION, VITALS HAS BEEN STABLE, TO FOLLOW UP H&H 2 HRS AFTER TRANSFUSION.
[2019-06-18 23:09] LABS: Hematocrit 24.3 % (37.0-53.0); Hemoglobin 7.7 g/dL (13.5-17.5)
[2019-06-19 04:43] LABS: BASOPHILS ABSOLUTE AUTO 0.03 K/mm3 (0.00-0.23); BASOPHILS PERCENT AUTO 0 % (0-2); EOSINOPHILS ABSOLUTE AUTO 0.21 K/mm3 (0.00-0.68); EOSINOPHILS PERCENT AUTO 2 % (0-6); Hematocrit 25.9 % (37.0-53.0); Hemoglobin 8.1 g/dL (13.5-17.5); IMMATURE GRAN ABSOLUTE AUTO 0.26 K/mm3 (0.00-0.10); IMMATURE GRAN PERCENT AUTO 2 % (0-1); LYMPHOCYTES ABSOLUTE AUTO 5.81 K/mm3 (0.84-5.20); LYMPHOCYTES PERCENT AUTO 40 % (21-46); MONOCYTES ABSOLUTE AUTO 0.89 K/mm3 (0.16-1.47); MONOCYTES PERCENT AUTO 6 % (4-13); Mean Corpuscular HGB Conc 31.3 g/dL (31.5-36.5); Mean Corpuscular Volume 96 fL (80-100); Mean Platelet Volume 12.2 fL (9.1-12.4); NEUTROPHILS ABSOLUTE AUTO 7.25 K/mm3 (1.96-9.15); NEUTROPHILS PERCENT AUTO 50 % (41-73); NRBC ABSOLUTE 0.05 K/mm3 (0.00-0.02); NRBC Auto 0.3 /100 WBC (0.0-0.2); Platelet Count 151 K/mm3 (150-400); RDW Coefficient Variation 18.7 % (11.7-14.2); RDW Standard Deviation 60.7 fL (35.1-46.3); White Blood Cell Count 14.45 K/mm3 (4.00-11.30)
--- NOTE | 2019-06-19 05:45 | NUR ---
SHIFT SUMMARY , ASSUMED CARE AT 1900 AND BLOOD COMPLETE BY 1935. DENIES ANY DISCOMFORT. CONVERSIVE ONLY WHEN QUESTIONED ABOUT ORIENTATION. SHORT QUICK STATEMENTS. FLAT AFFECT. SEEMS VERY DOWN IN MOOD. OFF TO SLEEP UNTIL AROUSED. BLOOD DRAW AND CALLED EFRA DUBOIS TO REPORT HGB., HE DID NOT WANT ANY BLOOD GIVEN AND WILL WAIT UNTIL AM LABS. NPO AT MID NOC. ANASARCA . ARMS SEEM PUFFY ALONE W/ LEGS. AND TORSO. ENC TO COUGH AND DEEP BREATHE. END EXP WZ NOTED T/O FIRST PART OF SHIFT AND IMPROVED A LITTLE. BED REST ALL NOC AND NO HR GREATED THAN APPROX 110. NOTED A 120 ONCE AND NOT EXERTING SELF. URINE ISELA.ENC TO CHANGE POSITIONS IN BED. HGB OF 8.1 NOT REPORTED THIS AM
--- NOTE | 2019-06-19 16:00 | NUR ---
Spiritual care visit conducted. Patient is lying in bed and immediately tells me that he is frustrated that the location of blood loss has not been found and that he is going in for another angiogram today. I listen empathically and provide anxiety containment, pastoral career development counselor and prayer. Patient responds well and displays evidence of increased peace. I will continue to remain available to patient and family.
--- NOTE | 2019-06-19 18:18 | NUR ---
PCU DAYSHIFT SUMMARY PATIENT REMAINED ALERT AND ORIENTED X4 T/O SHIFT. PATIENT DENIES ANY PAIN T/O SHIFT. ABD SOFT AND NONTENDER PER PATIENT. NO BOWEL MOVEMENTS NOTED THIS SHIFT. PATIENT KEPT NPO FOR ANGIOGRAM OF MESINTERIC ARTERIES. PATIENT LEFT UNIT AT 1830 TO SUPERVISOR CUTTING AND BONING. PATIENT WAS UP TO CHAIR THIS SHIFT -HEART RATE JUMPED TO 170'S NOTIFIED MD GREENE AND JAS. PATIENT ON ROOM AIR T/O SHIFT. PATIENT NOTED TO HAVE ANASARCA AND BRUISING T/O ALL EXTREMETIES. CPAP IN ROOM AND CONINUOUS BIOX IN PLACE T/O SHIFT. PATIENT REMAINED IN AFIB T/O SHIFT - WITH MEAN AT 100 BEATS PER MIN - 170'S WITH EXCERTION NOTED. NO ACUTE CHANGES THIS SHIFT. MAYNARD CATH IN PLACE DRAINING YELLOW URINE. WILL REPORT TO SAM LUIS RN.
--- NOTE | 2019-06-19 19:54 | NUR ---
PT BACK TO ROOM FROM DIRECTOR PERIOPERATIVE AT 1943. PT A+Ox4, VSS, PULSES +x4 STRONG. RIGHT GROIN ACCESS SITE WITH TEGADERM, SOFT TO PALP, NO SWELLING OR BRUISING NOTED. RIGHT DISTAL PULSE-OX 95%. PT DENIES PAIN, DIZZINESS, SOB, NOR NUMB/TING TO ALL EXTREM. PT CALLED AND TALKED TO SPOUSE WHO WAS GIVEN AN UPDATE. RT TO BEDSIDE FOR ROUTINE ROUNDS. PT AND JOHN RT BOTH STATED THAT PT'S PERSONAL CPAP MASK QUICK CONNECT WAS LOST DURING THIS STAY AND NEEDS TO BE REPLACED BY RICKS SUPPLY. WILL PASS ON TO BLUE PRINTS TRIMMER AND TO DAY RN IN THE AM.
--- NOTE | 2019-06-20 01:42 | NUR ---
UPDATE: PT WITH NO CHANGES FROM INITIAL ASSESSMENT. VSS. R GROIN WNL C/ DISTAL PPP, SKIN PWD. PT WANTING BREAK FROM CPAP. PT ON COTINUOUS PULSE OX. CALL LIGHT WITHIN REACH. WILL CONTINUE TO MONITOR.
[2019-06-20 03:56] LABS: BASOPHILS ABSOLUTE AUTO 0.02 K/mm3 (0.00-0.23); BASOPHILS PERCENT AUTO 0 % (0-2); EOSINOPHILS ABSOLUTE AUTO 0.17 K/mm3 (0.00-0.68); EOSINOPHILS PERCENT AUTO 2 % (0-6); Hematocrit 24.5 % (37.0-53.0); Hemoglobin 7.5 g/dL (13.5-17.5); IMMATURE GRAN ABSOLUTE AUTO 0.14 K/mm3 (0.00-0.10); IMMATURE GRAN PERCENT AUTO 1 % (0-1); LYMPHOCYTES ABSOLUTE AUTO 3.52 K/mm3 (0.84-5.20); LYMPHOCYTES PERCENT AUTO 31 % (21-46); MONOCYTES ABSOLUTE AUTO 0.86 K/mm3 (0.16-1.47); MONOCYTES PERCENT AUTO 8 % (4-13); Mean Corpuscular HGB 29.5 pg (26.0-34.0); Mean Corpuscular HGB Conc 30.6 g/dL (31.5-36.5); Mean Corpuscular Volume 97 fL (80-100); Mean Platelet Volume 12.3 fL (9.1-12.4); NEUTROPHILS ABSOLUTE AUTO 6.59 K/mm3 (1.96-9.15); NEUTROPHILS PERCENT AUTO 58 % (41-73); Platelet Count 164 K/mm3 (150-400); RDW Coefficient Variation 18.1 % (11.7-14.2); RDW Standard Deviation 61.7 fL (35.1-46.3); Red Blood Cell Count 2.54 M/mm3 (4.30-5.90)
--- NOTE | 2019-06-20 06:20 | NUR ---
PT RESTED T/O NOC. VSS. R GROIN SITE WNL. PT WITH NO C/O. CALL LIGHT WITHIN REACH.
--- NOTE | 2019-06-20 15:39 | NUR ---
Spiritual care visit conducted. Patient is in much better spirits today. He is telling jokes and states that he feels better. He explains that the doctors told him that they think they found the bleed and this was great news for the patient. Patient again reminds me that he is happy to go "be with Adrian" and happy to be well here and go home to his . I listen empathically, rejoice with patient over the success of yesterday's procedure and provide companionship. I will continue to remain available to patient and family.
--- NOTE | 2019-06-20 19:34 | NUR ---
SHIFT SUMMARY PT A&O; CALM AND COOPERATIVE WITH CARE. FORGETFUL AT TIMES. PT RESTING IN BED FOR MAJORITY OF SHIFT, UP 1 PERSON ASSIT TO BSC. PT HR 120 THIS AM; THIS AFTERNOON AND EVENING 80-100'S AT REST AND 150'S WITH ACTIVITY. PT DENEIS PAIN, CHEST PAIN/PRESSURE, SOB, NAUSEA AND DIZZINESS. PT WEAR 2L/CPAP AT NOC; USING 2L INTERMITTENTLY T/O DAY BUT ON RA FOR MAJORITY OF DAY. PT RECEIVING 1 UNIT PRBC THIS EVENING, APPEARS TO BE TOLERATING WELL. PT REPORT FEELING THE URGER TO HAVE A BM BUT NOT ABLE TO, NO BM REPORT SINCE 06/16; NOTIIFED DR GREENE; NEW ORDER TO START COLACE AND MIRALAX. PT EDEMATOUS T/O; IV FLUIDS DISCONTINUED BY DR GREENE. VSS. NO OTHER ACUTE CHANGES NOTED. REPORT GIVEN TO ONCOMING RN.
[2019-06-21 03:48] LABS: BASOPHILS ABSOLUTE AUTO 0.02 K/mm3 (0.00-0.23); BASOPHILS PERCENT AUTO 0 % (0-2); EOSINOPHILS ABSOLUTE AUTO 0.16 K/mm3 (0.00-0.68); EOSINOPHILS PERCENT AUTO 2 % (0-6); Hematocrit 25.7 % (37.0-53.0); Hemoglobin 7.9 g/dL (13.5-17.5); IMMATURE GRAN ABSOLUTE AUTO 0.11 K/mm3 (0.00-0.10); IMMATURE GRAN PERCENT AUTO 1 % (0-1); LYMPHOCYTES ABSOLUTE AUTO 3.31 K/mm3 (0.84-5.20); LYMPHOCYTES PERCENT AUTO 31 % (21-46); MONOCYTES ABSOLUTE AUTO 0.84 K/mm3 (0.16-1.47); MONOCYTES PERCENT AUTO 8 % (4-13); Mean Corpuscular HGB Conc 30.7 g/dL (31.5-36.5); Mean Corpuscular Volume 95 fL (80-100); Mean Platelet Volume 11.3 fL (9.1-12.4); NEUTROPHILS ABSOLUTE AUTO 6.33 K/mm3 (1.96-9.15); NEUTROPHILS PERCENT AUTO 59 % (41-73); Platelet Count 188 K/mm3 (150-400); RDW Coefficient Variation 17.3 % (11.7-14.2); RDW Standard Deviation 57.5 fL (35.1-46.3); Red Blood Cell Count 2.72 M/mm3 (4.30-5.90); White Blood Cell Count 10.77 K/mm3 (4.00-11.30)
[2019-06-21 04:05] LABS: Anion Gap 3 mmol/L (6-16); Blood Urea Nitrogen 21 mg/dL (8-24); Bun/Creatinine Ratio 27.3 (12.0-20.0); CO2, Blood 31 mmol/L (21-32); Calcium, Blood 7.6 mg/dL (8.5-10.1); Chloride, Blood 108 mmol/L (98-108); Creatinine, Blood 0.77 mg/dL (0.60-1.20); Glomerular Filtration Rate >60 (60-); Glucose, Blood 136 mg/dL (70-99); Sodium, Blood 142 mmol/L (136-145)
--- NOTE | 2019-06-21 04:35 | NUR ---
SHIFT SUMMARY: PATIENT SLEPT WELL THIS SHIFT, WHILE ON CPAP PATIENTS O2 TENDED TO INTERMITTENTLY DROP TO MID HIGH 70'S AND QUICKLY REBOUND BACK UP TO LOW 90'S. PATIENTS HR INCREASED TO AND MAINTAINING A RANGE OF 120 TO 130, WITH ASSESSMENT IT WAS DISCOVERED THAT HE HAD REMOVED HIS BIPAP. NASAL CANNULA WAS REPLACED AND HR DROPPED TO A RANGE FROM 80 TO 90'S SHORTLY AFTER AND MAINTAINED. ALL OTHER VSS, PATIENT EASY TO ARROUSE AND DENIES ANY SYMPTOMS FOR THIS SHIFT.
--- NOTE | 2019-06-21 15:54 | NUR ---
Spiritual care visit conducted. Patient immediately tells me that he is in a "Wait and see" holding pattern and that he is not improving in terms of strength or energy. Patient says that he is disappointed. I listen empathically, normalize patient's experience and provide companionship and prayer. Patient responds well and shows signs of a slightly elevated mood. I will continue to remain avialble to patient and family.
[2019-06-21 16:29] LABS: Hematocrit 26.9 % (37.0-53.0); Hemoglobin 8.4 g/dL (13.5-17.5)
[2019-06-21 16:45] LABS: Percent Saturation 15.9 % (20.0-50.0)
--- NOTE | 2019-06-21 18:15 | NUR ---
SHIFT SUMMARY PT IS A&OX4. RECEIVED 1 UNIT PRBC'S TODAY AND TOLERATED WELL. POST TRANSFUSION LABS IMPROVED. PT'S HEART RATE RANGED FROM 90'S TO 140'S, WITH MORE CONSISTANCE IN 90'S-110'S THIS AFTERNOON. OTHER VITALS HAVE REMAINED STABLE. GEN SURG WAS CONSULTED TODAY PER DR GREENE'S ORDERS.
[2019-06-22 03:54] LABS: BASOPHILS ABSOLUTE AUTO 0.02 K/mm3 (0.00-0.23); BASOPHILS PERCENT AUTO 0 % (0-2); EOSINOPHILS ABSOLUTE AUTO 0.15 K/mm3 (0.00-0.68); EOSINOPHILS PERCENT AUTO 1 % (0-6); Hematocrit 25.3 % (37.0-53.0); Hemoglobin 7.8 g/dL (13.5-17.5); IMMATURE GRAN ABSOLUTE AUTO 0.08 K/mm3 (0.00-0.10); IMMATURE GRAN PERCENT AUTO 1 % (0-1); LYMPHOCYTES ABSOLUTE AUTO 3.49 K/mm3 (0.84-5.20); LYMPHOCYTES PERCENT AUTO 29 % (21-46); MONOCYTES ABSOLUTE AUTO 0.97 K/mm3 (0.16-1.47); MONOCYTES PERCENT AUTO 8 % (4-13); Mean Corpuscular HGB 29.2 pg (26.0-34.0); Mean Corpuscular HGB Conc 30.8 g/dL (31.5-36.5); Mean Corpuscular Volume 95 fL (80-100); Mean Platelet Volume 12.1 fL (9.1-12.4); NEUTROPHILS ABSOLUTE AUTO 7.16 K/mm3 (1.96-9.15); NEUTROPHILS PERCENT AUTO 60 % (41-73); Platelet Count 214 K/mm3 (150-400); RDW Standard Deviation 56.8 fL (35.1-46.3); Red Blood Cell Count 2.67 M/mm3 (4.30-5.90); White Blood Cell Count 11.87 K/mm3 (4.00-11.30)
--- NOTE | 2019-06-22 06:23 | NUR ---
SHIFT SUMMARY: PATIENT STATED THAT HE WAS VERY 'TIRED OF BEING HERE' AND HE FELT THAT HE WAS NOT GETTING BETTER AND WOULD SOON. PATIENT STATES THAT SOMETIMES HE WISHES HE WOULD GO TO SLEEP AND NOT WAKE BACK UP. I TALKED TO HIM FOR AWHILE AND HE STATES HE HAS GOOD SUPPORT AT HOME AND WITH HIS RELIGIOUS AND HE WANTS TO GO HOME. HE EXPRESSED HIS DESIRE TO TALK TO PALLIATIVE OR SS AGAIN TO ASSIST HIM IN REACHING HIS GOAL. PATIENTS HR INCREASES DRAMATICALLY EVERY TIME HE CHANGES POSITION IN BED, HR RECOVERS QUICKLY, ALL VSS.
--- NOTE | 2019-06-22 08:01 | NUR ---
CARE ASSUMED REPORT RECEIVED, CARE ASSUMED AT 0700 FROM KLAUDIA GRAJEDA. PT STATES, "I HAVE BEEN HERE TOO LONG. I AM JUST DONE. I HAVE LIVED A LONG LIFE." DISCUSSED PLAN OF CARE WITH PATIENT. MESSAGE LEFT WITH PALLIATIVE CARE TO SEE PATIENT. PT ALSO TACHYCARDIC AND HYPOTENSIVE. UPDATED DR. JOYCE ON PATIENT'S WISHES, BP AND HR. PER DR. JOYCE, IF PATIENT IS WILLING TO TRANSFUSE TWO UNITS PRBC TO PUT IN ORDER. DR. JOYCE STATES SHE WILL BE IN THIS MORNING TO DISCUSS COMFORT CARE OPTIONS WITH HIM. UPDATED PATIENT, HE SAYS, "I DON'T SEE THE POINT OF IT RIGHT NOW." PT EDUCATED ON USE OF BLOOD TO IMPROVE BLOOD PRESSURE AND FATIGUE. PT CONTINUES TO DECLINE. ALSO DECLINES BREAKFAST. DENIES PAIN, DISCOMFORT. DECLINES NEEDS. ASSISTED TO REPOSITION. CALL LIGHT IN REACH. OFFERED TO ASSIST PT TO CALL HIS AND HE SAID IT'S TOO EARLY BUT THAT HE KNOWS HOW TO USE THE PHONE WHEN HE IS READY. PHONE IN REACH.
--- NOTE | 2019-06-22 09:05 | NUR ---
UPDATE DR. JOYCE TO BEDSIDE. PT MADE COMFORT CARE MEASURES. PT SPOKE WITH ON PHONE. APPROVAL FROM ORDER DISPATCHER FOR TO VISIT. NOTIFIED ER SCREENING. PT GIVEN GRAIN MILL PRODUCTS INSPECTOR'S NUMBER AND ASSISTED TO DIAL HIS NUMBER PER REQUEST. DECLINES PAIN, DISCOMFORT OR NEEDS AT THE TIME. STATES HIS WILL BE IN LATER TODAY.
--- NOTE | 2019-06-22 11:32 | NUR ---
Spiritual care visit conducted. Patient immediately tells about his decision to go to comfort care and the reasons behind his choice. He explains about the good and about his concerns for his . We cry together and pray together. Patient shares about the peace he has. I will continue to remain available to patient and family.
--- NOTE | 2019-06-22 11:44 | NUR ---
UPDATE PT'S AT BEDSIDE. PER AND PATIENT, THEY WANT TO KEEP PATIENT AT THE HOSPITAL SHE DOES NOT FEEL SHE COULD CARE FOR HIM WITH HOSPICE SERVICES AT HOME. PT'S REQUESTING THAT WE CALL [facility] [employer] IF PATIENT SHOULD PASS. MEMBERSHIP CARD PLACED ON PAPER CHART.
--- NOTE | 2019-06-22 12:30 | NUR ---
UPDATE/SUMMARY SINCE PREVIOUS NOTE, PT'S HAS GONE HOME. SAID SHE WOULD BE BACK TOMORROW. SAYS SHE CAN'T STAY AT BEDSIDE DUE TO HER OWN HEALTH CONDITIONS AND NEEDING TO CARE FOR A DOG AT HOME. PT HAS MADE VARIOUS PHONE CALLS SINCE SHE LEFT. PT DENIES SOB, PAIN, DISCOMFORT. DECLINES REPOSITIONING. REPORT GIVEN TO KLAUDIA OLEARY TO ASSUME CARE.
--- NOTE | 2019-06-22 14:17 | NUR ---
1230 CARE ASSUMED PT COMFORT MEASURES ONLY, IS RESTING IN BED AT THIS TIME, STATES HE WOULD LIKE HIS ENTERTAINMENT MANAGER CALLED SO THAT HE CAN COME VISIT. MESSAGE LEFT FOR ENTERTAINMENT MANAGER. PT ALERT AND ORIENTED X4, APPROPRIATE AND COOPERATIVE, GAIT STEADY FOR SHORT DISTANCES WITH 2 PERSON ASSIST, PT STATES HE IS WEAK. MAYNARD PATENT AND DRAINING TO GRAVITY, SCD'S IN PLACE. PT DENIES NAUSEA, PAIN, SOB, OR DISCOMFORT.
--- NOTE | 2019-06-22 14:21 | NUR ---
TRANSFER NOTE PT TO MEDICAL FLOOR ROOM 302 AT THIS TIME, REPORT GIVEN TO KLAUDIA SMART. PT TRANSFERRED VIA WC WITH MEDS, CHART, AND BELONGINGS, TRANSFERS FROM BED TO CHAIR AND BACK WITHOUT DIFFICULTY.
--- NOTE | 2019-06-22 14:30 | NUR ---
Comfort care visit: Keegan has decided to transition to comfort care. He reports he is tired and is at peace with his decision to stop treatments and to focus on comfort. He denies symptoms except for weakness. Explained that his weakness will continue to worsen due to his increased imobility and declining H/H. He reports that his was able to visit him earlier today which he was very happy about. He states that at first she wasn't happy when he told her that he decided to opt for comfort care however he reports that once he had a chance to explain his reasoning she was accepting of his decision. He stated that "I don't want to be a burden to my ." He reporst he would prefer to stay in the hospital and pass away here if possible. Explained that if he continues to decline as expected by Dr. Powers's progress note, that he will be cared for here. If he stabilizes we may possibly need to revisit discharge planning options. Currently per DEEP Amin community care specialist, the plan is to see how Keegan does over the weekend and to reevaluate on Tuesday. PC will continue to follow for symptom managment and emotional support.
--- NOTE | 2019-06-22 15:10 | NUR ---
SHIFT SUMMARY PT TRANSFERRED FROM ICU THIS AFTERNOON AND WAS ASSISTED INTO BED AND ORIENTED INTO HIS NEW ROOM. HE DENIES ALL PAIN AND DISCOMFORT. MAYNARD IS PATENT. PT REMAINS ON COMFORT CARE. WAS NOTIFIED OF HIS TRANSFER TO MEDICAL FLOOR. ICU NURSE STATES HIS DISPATCHER REFINERY WAS CALLED PER PT REQUEST. PT IS RESTING IN HIS ROOM. HE IS ABLE TO MAKE HIS NEEDS KNOWN AND CALLS FOR HELP WHEN NEEDED. CALL LIGHT IS IN REACH.
--- NOTE | 2019-06-22 20:58 | NUR ---
COMFORT CARE UPON ASSUMING CARE AT 1855 TODAY PT APPEARS A/O AND COMFORTABLE. HE DENIES PAIN OR CONCERNS AT THIS TIME. HAS CALL LIGHT IN REACH AND BED IN LOWEST POSITION. WILL CONT TO MONITOR
--- NOTE | 2019-06-23 00:39 | NUR ---
COMFORT CARE AT 1999 PT STATED TO LEAF CONDITIONER HELPER HE CAN REPOSITION SELF AND DOESNT NEED ANY ASSISTANCE AT THIS TIME. PT APPEARS COMFORTABLE AND IS RESTING IN BED. HAS CALL LIGHT IN REACH. WILL CONT TO MONITOR.
--- NOTE | 2019-06-23 00:41 | NUR ---
COMFORT CARE AT 0010 PT APPEARS TO BE SLEEPING COMFORTABLY IN BED. HAS CALL LIGHT IN REACH. WILL CONT TO MONITOR
--- NOTE | 2019-06-23 05:36 | NUR ---
SHIFT SUMMARY NO ACUTE CHANGES THIS SHIFT. PATIENT REPORTS RESTING COMFORTABLY T/O NIGHT. IS A/OX4, PLEASANT AND COOPERATIVE. PICC FLUSHED AND CAPS CHANGED. GUY PO INTAKE, DENIES N/V. MAYNARD IN PLACE, DRAINING LIGHT ISELA COLORED URINE W/700 OUT. BM SMEAR NOTED, RAMBO CARE PROVIDED. REPOSITIONED ALLOWED. DENIED ORAL CARE. LOTION TO UPPER EXTREM APPLIED AND WARM CLOTH FOR FACE/ARMS PROVIDED PRN . PT APPEARS TO BE SLEEPING IN BED WITH CALL LIGHT IN REACH AT THIS TIME. WILL CONT TO MONITOR AND GIVE REPORT TO ONCOMING RN.
--- NOTE | 2019-06-23 15:09 | NUR ---
Clinical Visit: Pt is alert and oriented. He denies pain, reports occassional shortness of breath and anxiety. He has just had a visit with his this morning. He states that this went well. He has been for 61 years, has no children as his miscarried 4 times during their marriage. Pt reports poor sleep. He states that he keeps waking up; he is unsure of what keeps waking him up. He feels very weak. He is experiencing some racing thoughts - he is not worried about dying, he is somewhat worried about leaving his behind when he dies. Discussed symptoms. He is agreeable to Ativan to assist with sleep and the ease of his racing thoughts. He is agreeable to roxanol for the times he is short of breath. His respirations are not labored at this time, but they are shallow and he can speak 3-5 short words at a time. Pt states that he does not want any medications that would prolong his life: Reviewed medication list and purpose of medications ordered. He verbalizes understanding of comfort measures medications after discussion. No other concerns. Recommend starting pt at 0.5mg Ativan and 5mg Roxanol for treatment of symptoms and titrate up for effect. Offer at bedtime to assist with sleep.
--- NOTE | 2019-06-23 17:22 | NUR ---
SHIFT SUMMARY. COMFORT CARE PT. PT IS A&OX4, PLEASANT AND FRIENDLY. PT DENIES PAIN, SOB, N/V. PT DOES APPEAR TO BE FEELING A BIT DOWN AT TIMES. ATIVAN GIVEN THIS AFTERNOON. AND DIRECTOR SALES SUPPORT IN TO VISIT THIS AM. MAYNARD DRAINING DARK YELLOW URINE. NO NEW CHANGES OR CONCERNS.
--- NOTE | 2019-06-24 05:49 | NUR ---
CARTON WRAPPER SUMMARY NO ACUTE CHANGES THIS SHIFT. PT AAOX3 AND PLEASANT. DENIES PAIN. DID REQUEST ATIVAN AT START OF SHIFT PT HAS HAD A DIFFICULT TIME RELAXING AT NIGHT AND GETTING SLEEP. AFTER ATIVAN PT HAS BEEN ABLE TO REST THROUGH THE NIGHT. WILL CONTINUE TO PROVIDE COMFORT CARE MEASURES.
--- NOTE | 2019-06-24 18:15 | NUR ---
SHIFT SUMMARY. PT IS ALERT, PLEASANT. PT APPEARS DEPRESSED. ATIVAN GIVEN TWICE THIS SHIFT WITH GOOD EFFECT. ROXONOL 5MG GIVEN ONCE THIS SHIFT FOR ABD PAIN WITH GOOD EFFECT. FAMILY IN TO VISIT THIS MORNING INTO THE AFTERNOON. PT DENIES SOB, N/V. MAYNARD CONTINUES TO DRAIN CLEAR YELLOW URINE. NO OTHER CHANGES OR CONCERNS. NO S/SX OF DISCOMFORT OR DISTRESS.
--- NOTE | 2019-06-25 04:38 | NUR ---
ADVISORY INTERNSHIP SUMMARY NO ACUTE CHANGES. PT AAOX4 AND PLEASANT. DENIES PAIN. GIVEN 1 MG PO ATIVAN AT HS TO HELP WITH SLEEP AND RELAXATION. ASSISTED PT WITH REPOSITIONING WHEN ALLOWED BY PT. REMAINS ON COMFORT CARE MEASURES. WILL CONTINUE TO MONITOR.
--- NOTE | 2019-06-25 11:04 | NUR ---
Comfort Care Visit. Pt resting in bed with his eyes closed. Family at bedside. Pt's requests if she is not here that she receives a phone call with any change in Pt's condition. Mild labored breathing noted and Roxanol has been given by bedside RN prior to visit. Family reports no concerns at this time. Spoke with Bedside RN Hudson and discussed case. Palliative Care will remain available.
--- NOTE | 2019-06-25 13:23 | NUR ---
PTS FAMILY IS IN ROOM. PT AND FAMILY EXPRESSED NO NEEDS. COMFORT CART PLACED IN ROOM.
--- NOTE | 2019-06-25 15:55 | NUR ---
Initial spiritual care note: I met with spouse, Jesús, at bedside. She has a life-long bijal in a loving God that sustains her. She tells me she is well loved and supported by family, dental internship and congregation. "I know where Claude is going." She reports peace with Claude's passing. Jessú was soft-spoken and a bit withdrawn, but she allowed me to pray and provide gentle bereavement certified travel counselor. No concerns/needs presented. Claude appeared comfortable and well cared-for by nursing. He slept throughout my visit. I will remain available.
--- NOTE | 2019-06-25 18:23 | NUR ---
SHIFT SUMMARY. OBSERVED PT WITH INCREASED RESPIRATORY RATE THIS AM, HE REPORTED HE FELT HE WAS BREATHING HEAVIER. ATIVAN AND ROXONOL GIVEN WITH GOOD EFFECT, PT RESTED COMFORTABLY THE REMAINDER OF THE SHIFT. FAMILY AT BEDSIDE MOST OF THE SHIFT AND AGREE WITH PLAN OF CARE. PT REPORTED THAT HE FELT THAT HE WAS BECOMING WEAKER TODAY. MAYNARD PATENT AND DRAINING. NO OTHER CHANGES OR CONCERNS.
--- NOTE | 2019-06-26 05:11 | NUR ---
SCRAPPER SUMMARY NO ACUTE CHANGES. GIVEN PT 10 MG ROXANOL BEFORE BED TO HELP WITH AIR HUNGER. PT FAMILY TO VISIT AT START OF SHIFT, STAYED FOR A FEW HOURS. PT RESTING COMFORTABLY THROUGHOUT THE NIGHT. WILL CONTINUE TO MONITOR.
--- NOTE | 2019-06-26 11:14 | NUR ---
Pt resting in bed upon arrival. Pt is alert, awake, and denies dicsomfort at this time. Pt requests a cup of ice water with this complying with request. Family arrives and discussed options and goals. Discussed option for hospice with family reporting inability to care for Pt at home. Pt's nephew Chris reports living in [place] and inability stay in [place] much longer which would leave Pt's to care for him on her own. Pt's reports inability to care for Pt by herself. Wishes are for Pt to pass away here at the hospital. Instructed family that wishes will be relayed to Yennifer and Dr Persaud. Spoke with Pt's Bedside RN Jey and discussed case. Jey is requesting stool softner order. Pt had difficulty with BM this AM. Spoke with Dr Persaud, discussed case, relayed family and Pt's wishes. Relayed request for bowel regimen. Placed order for Colace 100mg BID PO and Mrialax daily PRN per V/O from Dr Persaud. Dr Persaud will contact this RN when he makes visit to Pt and family to further discuss goals and options. Spoke with Yennifer aPtel, discussed case, wishes, and plan to continue conversation regarding options and goals. Palliative Care will remain available.
--- NOTE | 2019-06-26 12:25 | NUR ---
COMFORT CARE PATIENT MEDIATED X1 FOR AIR HUNGER. PATIENT DENIES PAIN AND NAUSEA. PATIENT VISITING WITH FAMILY AT BEDSIDE. PALLIATIVE CARE AND DR. TOBAR MEETING WITH FAMILY TO DISCUSS DISCHARGE OPTIONS.
--- NOTE | 2019-06-26 12:45 | NUR ---
Joint visit with Dr Persaud. Pt resting in bed and just received Roxanol for dyspnea. Pt's family at bedside. Dr Persaud engages in therapeutic discussion regarding goals and prognosis. Hospice was discussed further with family agreeable to have more detailed conversation with Roxanne &Jazzmine Chaidez. Kaylynn arrives to room and this RN ended visit. Palliative Care will remain available.
--- NOTE | 2019-06-26 15:00 | NUR ---
SPiritual care visit conducted. Patient is lying in bed and sleeping. Patient's spouse, Jesús, and nephew, Chris, are bedside. Jesús tells me about how the patient has been over the last several days, about the life they have had together and about their jain belief system. I listen empathically, conduct a life review and provided a calming presence, pastoral behavioral health counselor and prayer. Jesús and Chris respond well and show signs of being comforted. I will continue to remain available to patient and family.
--- NOTE | 2019-06-26 17:37 | NUR ---
SHIFT SUMMARY PATIENT MEDICATED X2 FOR AIR HUNGER AFTER ACTIVITY TODAY. PATIENT DENIES NAUSEA AND PAIN. PATIENT REPOSITIONED IN BED, PATIENT DOES NOT TRANSFER AT THIS TIME. PATIENT'S FAMILY VISITED AT BEDSIDE. PATIENT AND FAMILY WORKING WITH PALLIATIVE CARE AND [facility] TO CREATE DISCHARGE PLAN FOR PATIENT.
--- NOTE | 2019-06-27 04:28 | NUR ---
SHIFT SUMMARY PT APPEARED COMFORTABLE THROUGHOUT THE NIGHT. REQUESTING TO NOT BE WOKEN ONCE ASLEEP. DRANK SOME ORANGE JUICE, DECLINED ANY SNACKS OTHERWISE. FAMILY AT BEDSIDE AT START OF SHIFT BUT WENT HOME SHORTLY AFTER. NO COMPLAINTS OF PAIN. SO SIGNS OF SOB. MAYNARD CATH PATENT AND DRAINING. NO ACUTE CHANGES THIS SHIFT. WILL CONTINUE TO MONITOR.
--- NOTE | 2019-06-27 14:17 | NUR ---
Pt resting in bed upon arrival. Pt's Jesús and Statistical Analyst Jamil at bedside. Pt denies pain and dyspnea at this time. Mild anxiety noted as Pt discusses his concerns regarding being a burden on his when he goes home. Pt's Jesús expresses no concerns and feels she will have adequate support with hospice. Re-eforced education regarding hospice not being a caregivers. Jesús reports having a bathaide will address her biggest concern. Reenforced education regarding Pt requiring more care as he becomes weaker. Instructed on plan for careteam to collaborate and determine support for Jesús when Pt discharges home. Plan is for Engineering Secretary to come speak with Pt and this afternoon. Will plan to meet with Snubber and HH&H Liamorales Chaidez. Palliative Care will reamain available.
--- NOTE | 2019-06-27 14:23 | NUR ---
Spiritual care visit conducted. Patient is lying in bed and resting. Patient's spouse Jesús is bedside. She tells me that patient is disappointed that he is still here and not in heaven. She tells me about Patient's Nephew and his (Chris and Kiki) and their departure back to [facility]. Patient emphasizes his frustration about this dying taking so long. He feels like he was led by doctors to believe this would be days and not weeks. We talk about best educated guesses based on all the evidence for timing for and we talk about the spiritual aspect of trusting God's timing. When Palliative Care RN Chris joins the conversation, patient states that his two concerns are being a burden to his if he goes home on hospice and not wanting to linger for a long period of time. I provide a calming presence, pastoral awake overnight counselor and prayer. Patient and Jesús respond well and show signs of elevated mood. I will will continue to remain available to patient and family.
--- NOTE | 2019-06-27 16:17 | NUR ---
Spiritual care consult with care management, hospice and palliative care attended
--- NOTE | 2019-06-27 16:56 | NUR ---
Case Conference Note Met with [facility]& Liason Kaylynn, Senior Biostatistician, Caremanager Amanda, [place] Brush Maker Eloisa, and Beam Carrier Hauler Pusher Jamil. Care team discussed concerns and ideas for safe discharge. Concern is Pt's Jesús's ability to provide safe and adequate care for Pt. Pt is currently not imminent and his goal is to have a comfortable, peaceful, natural . Plan at this time is to determine if hospice is still able to provide 2 week respite at care facility and to have physical therapey evaluate 's ability to transfer Pt safely with micaela. This RN will call Pt's nephew Chris to discuss his date of return from [place] as an extra layer of caregiving support. Tenative plan is for Pt to D/C on Tuesday with [facility]. Called and spoke with Pt's nephew Chris. He reports being uncertain when he will be able to come back to [place]. He does offer calling Pt's [facility] to reach out for volunteers who are pysically able to assist with Pt's care needs. Chris's phone number [phone] Palliative Care will remain available.
--- NOTE | 2019-06-27 17:04 | NUR ---
SHIFT SUMMARY PATIENT DENIES PAIN, NAUSEA, AND SHORTNESS OF BREATH. PATIENT UP TO BSC TWO MAX STAND PIVOT WITH GAIT BELT. PATIENT HAD BM AND STATES HIS STOMACH FEELS BETTER. PATIENT NAPPING AND VISITING WITH HIS THIS SHIFT. PATIENT AND [facility] TO WORK ON DISCHAGRE PLAN. PATIENT WILL HAVE PT EVAL WITH PARTICIPATING TO SEE IF FRIEDA LIFT IS AN OPTION FOR PATIENT TRANSFERING AT HOME. PICC LINE REMOVED BY NECK SKEWER.
--- NOTE | 2019-06-28 04:03 | NUR ---
SHIFT SUMMARY ADMITTED FOR UPPER GI BLEED. DNR/COMFORT CARE. FOUND TO HAVE DIEULAFOY LESION THAT IS PROBLEMATIC TO FIX. PLAN IS FOR DC W/[facility] ON TUESDAY. 2 MAX ASSIST, STAND PIVOT W/GAITBELT. PT IS A&O X4, ON RA, MAYNARD IN PLACE, REGULAR DIET. BLE 1+ TO 2+ EDEMA. AT HOME IS ELDERLY, 87 YRS OLD. PT IS WITHDRAWN THIS SHIFT. NO OTHER CONCERNS.
--- NOTE | 2019-06-28 09:14 | NUR ---
PT HAS ANXIETY R/T PASSING PT STATES "I'M SCARED OF THE UNKNOWN. ASK PT IF HE WOULD LIKE PASTEROL CARE TO COME AND PT DECLINED AT THIS TIME. ASSIT PT IN CALL HIS . PT REPORTS BEING COMFORTABLE.
--- NOTE | 2019-06-28 12:48 | NUR ---
Spiritual care visit conducted. Patient is lying in bed and alert with Jesús bedside. Patient and Jesús immediately tell me that they think going home on hospice, given patient's girth, patient's weakness and Jesús's frail condition, is a poor idea. Patient tells me about some of his fears regarding and dying. 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 I listen empathically to patient, provide inspiring soft guitar music, pasoral certified alcohol and drug counselor and prayer. Patient and Jesús respond well and show signs of uplifted spirits. I will continue to remain available to patient and family.
--- NOTE | 2019-06-28 14:01 | NUR ---
Pt resting in bed upon arrival. Pt reports no concerns and appears comfortable at this time. Engaged in therapeutic listening as Pt's Jesús expresses concerns regarding her inability to pay for caregivers and states she does not want to go further in debt. Validated concerns and continued therapeutic listening. Jesús reports plan to go home for the day. She leaves note for this RN to give HH&H Liason Kaylynn. No other concerns reportsed at this time. Left Jesús's note and Kaylynn's desk. Previous discussion with Jil from PT this AM. Jil reports is not comfortable with attempting the use of cecilia lift with Pt. Jil reports due to Jesús's age and frailty recommendations would be against having Jesús use cecilia lift. Palliative Care will remain available for symptom management and therapeutic visits.
--- NOTE | 2019-06-28 14:42 | NUR ---
PT RESTING WELL, WITH AT BEDSIDE. PT HAS INCREASED SECREATION SOPOLAMMINE PATCH REQUESTED FROM PHARMACY. PT DECLINES DISCOMFORT AT THIS TIME.
--- NOTE | 2019-06-28 14:50 | NUR ---
PT REPOSITIONED ONTO RIGHT SIDE, SCOPOLAMINE PATCH PLACED.
--- NOTE | 2019-06-28 16:02 | NUR ---
Met with HH&H Liason Kaylynn, Yennifer Miller, Webster Reel Fed Printer Eloisa and discussed case. Discussion was made for possible home health then transition to hospice. No recent bleeding noted and discussed case with Dr Persaud. Dr Persaud is agreeable for H&H and CMP if Pt is agreeable to help determine if Pt may be still actively bleeding. Group visit with care team with the addition of [employer] Tim, Bedside RN Mary Lou, and SHAHBAZ Zurita. Discussed thoughts and ideas with Pt. Pt appears apprehensive of working with physical therapy and states that he is even weaker. Pt does agree to having blood drawn to help team determine if bleeding is still occuring. Pt is agreeable with Yennifer Patel to have further discussions regarding disposition with him and his . Placed order for H&H and CMP per V/O from Dr Persaud. Palliative Care will remain available.
--- NOTE | 2019-06-28 16:23 | NUR ---
SHIFT SUMMARY PT IS ON COMFORT CARE. PT HAS DENIED PAIN DURING THIS SHIFT. PT HAD SITTING AT THE BED SIDE THROUGHT OUT THE MORNING. PT HAD CARE TEAM CONFRENCE AT BED SIDE THIS SHIFT TO DISCUSS D/C PLAN. PT AGREED TO CHECK H&H PERFORMED TO CHECK HEMOGLOBIN. PT TOLORATED JUICE WELL, METHELEX PLACED ON COCCXY. PT HAS CALL LIGHT WITH IN REACH WILL COUNTINE TO MONITOR.
[2019-06-28 17:05] LABS: Hematocrit 28.5 % (37.0-53.0); Hemoglobin 8.1 g/dL (13.5-17.5)
[2019-06-28 17:24] LABS: Alanine Aminotransfer (ALT/SGP 16 U/L (12-78); Albumin, Blood 2.2 g/dL (3.4-5.0); Albumin/Globulin Ratio 0.6 (0.8-1.8); Alk Phos 59 U/L (50-136); Anion Gap 4 mmol/L (6-16); Aspartate Aminotrans (AST/SGOT 15 U/L (12-37); Bilirubin, Total 1.1 mg/dL (0.1-1.0); Blood Urea Nitrogen 14 mg/dL (8-24); Bun/Creatinine Ratio 17.2 (12.0-20.0); CO2, Blood 32 mmol/L (21-32); Calcium, Blood 7.9 mg/dL (8.5-10.1); Chloride, Blood 103 mmol/L (98-108); Creatinine, Blood 0.81 mg/dL (0.60-1.20); Globulin, Blood 3.8 g/dL (2.2-4.0); Glomerular Filtration Rate >60 (60-); Glucose, Blood 170 mg/dL (70-99); Potassium, Blood 4.8 mmol/L (3.5-5.5); Sodium, Blood 139 mmol/L (136-145)
--- NOTE | 2019-06-28 18:05 | NUR ---
PT HAD COMPLETE BED BATH AND SHAVE TOLRATED WELL, PT REQUESTED FRESH JUICE, ORAL CARE PERFORMED. PT REPOSITINED.
--- NOTE | 2019-06-28 18:07 | NUR ---
PT RESTING BED
--- NOTE | 2019-06-28 19:52 | NUR ---
PT STATUS PT REQUESTING ORANGE JUICE, A&O X4, ABLE TO MAKE HIS NEEDS KNOWN. ATTEMPTED TO CALL HIS X2. HE THEN DECIDED TO WAIT UNTIL TOMORROW TO TALK TO HER. REPOSITIONED HIM HE REQUESTED.
--- NOTE | 2019-06-29 04:40 | NUR ---
SHIFT SUMMARY ADMITTED FOR UPPER GI BLEED. DNR CODE/COMFORT CARE. FOUND TO HAVE A DIEULAFOY LESION IN 1ST PORTION OF UPPER JEJUNUM. PT DENIED PAIN OR AIR HUNGER THIS SHIFT. A SCOPALAMINE PATCH IS IN PLACE. HOPEFUL FOR DC ON TUESDAY, POSSIBLY W/HOME HEALTH (THEN TRANSITION TO HOSPICE). IS 87 YEARS OLD HERSELF AND WILL NEED ASSISTANCE WITH HIS CARE. HE IS ON RA, A&O X4, REGULAR DIET. HE IS ABLE TO MAKE HIS NEEDS KNOWN. MAYNARD IS IN PLACE.
--- NOTE | 2019-06-29 08:27 | NUR ---
ASSUMPTION OF CARE. SPOKE WITH PATIENT THIS AM DURING BEDSIDE REPORT. HE REPORTED THAT HE IS CONCERNED ABOUT THE IDEA OF GOING HOME WITH CAREGIVERS HE DOES NOT THINK THAT HE WILL FAIR WELL. HE DID DENY PAIN AT THE TIME. HE IS VERY EDEMATOUS IN ALL EXTREMITIES. WILL CONTINUE TO MONITOR FOR CONCERNS AT THIS TIME. MAYNARD IS DRAINING. WILL HAVE TO CALCULATE OUTPUT. HE DOES NOT WANT TO TAKE HIS COLACE THIS AM, AND HE IS NOT HUNGRY. NOT REPORTING ANY NAUSEA OR VOMITING AT THIS TIME.
--- NOTE | 2019-06-29 11:48 | NUR ---
Spiritual care visit conducted. Patient is alert and oriented, Jesús is bedside. They explain that they have not heard the results of patient's blood test and so they are not sure about patient's bleed or his care plan. Patient continues to frustrated that he has not especially getting his mind wrapped around this idea and being under the impression that it would be a quick . Patient and Jesús talk about their hoahaoism beliefs and allow me to provide prayer. I will continue to remain available to patient and family.
--- NOTE | 2019-06-29 14:41 | NUR ---
PATIENT HAS BEEN UP TWICE TO THE COMMODE TODAY, NO ACUTE CONCENRS AT THIS TIME. PATIENT'S FAMILY MEMBER STATES THAT SHE CANNOT TAKE CARE OF HI,M AT HOME AND SHE WOULD PREFER A PLACEMENT UNTIL HE COULD MOVE. SHE TOLD THE DOCTOR THAT THE PATIENT WANTS TO AND HE NEEDS TO JUST SO HE CAN BE COMFORTABLE. WILL ADDRESS ANY OTHER CONCERNS THEY ARISE.
[2019-06-29 14:54] LABS: Stool Occult Blood Guaiac 1 Pos (Neg)
--- NOTE | 2019-06-29 17:48 | NUR ---
shift summary patient is still on comfort care at this time. doctor is wanting to speak wiht the patient about changing from comfort care. he has been pleasant today and had been up to the commode today multiple times. patients family states she does not feel that she can take care of him at home, but he has been moving well. she thinks that he would be better in a usp to ride out his days.
--- NOTE | 2019-06-30 04:53 | NUR ---
SHIFT SUMMARY ADMITTED FOR UPPER GI BLEED. DNR/COMFORT CARE. FOUND TO HAVE A DIEULAFOY LESION IN UPPER JEJUNUM. STOOL POSITIVE FOR GUAIAC. PT DOES NOT WANT TO BE DC'D HOME, HE FEELS HIS CANNOT CARE FOR HIM. MAYNARD IN PLACE, 2 ASSIST STAND/PIVOT, RA, REGULAR DIET. BUE AND BLE ARE EDEMATOUS. I FOUND TWO NICKEL SIZED PRESSURE ULCERS ON BUTTOCKS, UNABLE TO GET PIC CAMERA -WILL PASS TO DAYSHIFT THE NEED FOR PICS. MEPILEX IN PLACE. HE IS A&O X4 AND CAN MAKE HIS NEEDS KNOWN.
--- NOTE | 2019-06-30 18:12 | NUR ---
SHIFT SUMMARY PATIENT IS PLEASANT, ALERT AND ORIENTED. STILL ON COMFORT CARE. CURRENTLY THE PATIENT DENIES PAIN, SHORTNESS OF BREATH, ANXIETY. HE HAS GOTTEN UP TO THE BEDSIDE COMMODE ONCE TODAY AND HAD ONE ACCIDENT. HE HAS EATEN ONE MEAL TODAY AND HAS BEEN SINCE VERY SLEEPY. NO ACUTE CHANGES OF THIS SHIFT.
--- NOTE | 2019-07-01 06:00 | NUR ---
SHIFT SUMMARY PT IS AN 84 Y/O MALE, ORIGINALLY ADMITTED FOR AN UPPER GI BLEED, CURRENTLY ON COMFORT CARE AND AWAITING PLACEMENT. PT IS A&O X 3, AND A 2PA UP TO THE BS. HE WAS MEDICATED ONCE DURING THE NIGHT FOR A HEADACHE AND FOR ANXIETY. NO COMPLAINTS OF NAUSEA, SOB OR SECRETIONS. PT SLEPT OFF AND ON DURING THE NIGHT. NO ACUTE CHANGES IN PT CONDITION NOTED. WILL CONTINUE TO MONITOR AND TREAT PER EMAR UNTIL HAND OFF TO DAY SHIFT RN.
--- NOTE | 2019-07-01 07:28 | NUR ---
ASSUMPTION OF CARE NOTE- PATIENT STILL ON COMFORT CARE AT THIS TIME. CURRENTLY THE PATIENT IS EXPERIENCING INCREASING ANXIETY AND HE STATES "I JUST DON'T FEEL MYSELF, I DON'T FEEL RIGHT, AND I'M UNCOMFORTABLE BUT NOT IN PAIN". ASKED THE PATIENT WHAT HE DOES AT HOME, WHERE HE TYPICALLY SITS. PATIENT STATES THAT HE USUALLY SITS IN A RECLINER, AND THAT IS HIS PLACE FOR THE DAY. OFFERED PATIENT A RECLINER TO SIT IN FOR BREAKFAST THIS MORNING. HE STATES THAT MAY MAKE HIM FEEL BETTER.
--- NOTE | 2019-07-01 08:49 | NUR ---
PATIENT IS CURRENTLY SITTING UP IN THE CHAIR EATING HIS BREAKFAST. HE IS PLEASANT THIS MORNING ALTHOUGH HE IS DEFINITELY ANXIOUS.
--- NOTE | 2019-07-01 14:40 | NUR ---
Review strategies of care with dr shannon and nursing srtaff. pt needs polst completed possibly with comfort measurew only if he does not want to seek care. Dr shannon meeting with pt and .
--- NOTE | 2019-07-01 18:51 | NUR ---
SHIFT SUMMARY PATIENT IS HAVING A LOT OF TROUBLE WITH HIS CURRENT FEELINGS. HE IS UNCOMFORTABLE WITH THE FACT THAT HE IS STILL ALIVE. HAVING A SIT DOWN CONVERSATION WITH HIM TODAY, HE HAD ONE MEAL AND FROM THE TIME I ARRIVED ON SHIFT THIS MORNING THE PATIENT TOLD ME HE DID NOT FEEL LIKE HIMSELF, HE FELT THAT THE MAN HE WAS IS AND NOW HE IS A SHELL. HE IS HAVING TROUBLE MOVING ON AND HE FEELS THAT HE NO LONGER WANTS TO BE ALIVE. THIS IS NOT THE FIRST TIME THAT HE HAS HAD A GI BLEED THAT HAS ALMOST KILLED HIM AND HE DOES NOT WANT TO CONTINUE TO GO THROUGH THIS. SAT DOWN AND SPOKE WITH THE PATIENT ABOUT FINISHING A POLST THAT STATED COMFORT MEASURES ONLY IN CASE THE PATIENT WERE TO BE DISCHARGED HOME. PRIED A BIT INTO THE PATIENTS EMOTIONS ASKING IF THERE WAS ANYTHING ELSE BUGGING HIM. HE REPORTED HE FELT LIKE HE WAS IN A VERSION OF [employer]. "I CAN'T CONTINUE TO TELL MY I LOVE HER AND GOODBYE EVERY DAY. ITS LIKE A BAD MOVIE, I WAKE UP, REALIZE I'M ALIVE, TELL MY I LOVE HER, TELL HER GOODBYE, FALL ASLEEP, AND DO IT ALL OVER AGAIN. BUT I DON'T WANT TO BE". I HAVE MADE THIS NOTED TO PALLIATIVE CARE AND TO THE DOCTOR. CURRENTLY THE PATIENT IS STILL STRUGGLING WITH SOMETHING INTERNALLY AND A NEW SPIRITUAL CARE/TRANSFUSION NURSE CONSULT HAS BEEN ORDERED IN ORDER TO FOLLOW UP WITH THE PATIENT SOON POSSIBLE. THE PATIENT IS DEFINITELY IN MORAL AND EMOTIONAL DISTRESS RELATED TO CONTINUING HIS LIFE. WHEN I ASKED ELTON IF HE WAS UNCOMFORTABLE HE STATED THAT HE WAS UNCOMFORTABLE BOTH PHYSICALLY, AND EMOTIONALLY, BUT DID NOT WNAT ANYTHING THAT COULD POTENTIALLY PROLONG HIS LIFE EVEN IF IT WOULD MAKE HIM MORE COMFORTABLE. AT 1830 I GAVE HIM A DOSE OF ATIVAN TO HELP HIM RELAX HIS MIND SO HE COULD REST.
--- NOTE | 2019-07-02 06:09 | NUR ---
SHIFT SUMMARY PT IS AN 84 Y/O MALE, ORIGINALLY ADMITTED FOR A GI BLEED AND CURRENTLY ON COMFORT CARE AWAITING PLACEMENT. PT IS A&O X 4, THOUGH APPEARS DEPRESSED. PT IS REFUSING ANY CARE THAT MAY PROLONG HIS LIFE, AND DID NOT WANT ANY PAIN OR ANXIETY MEDS. PT APPEARED TO REST COMFORTABLY FOR MOST OF THE NIGHT. TURN Q2H. MAYNARD PATENT AND DRAINING DARK YELLOW URINE. NO ACUTE CHANGES IN PT CONDITION NOTED. WILL CONTINUE TO MONITOR AND TREAT PER EMAR UNTIL HAND OFF TO DAY SHIFT RN.
--- NOTE | 2019-07-02 13:37 | NUR ---
Pt resting in bed upon arrival. Pt denies pain at this time. Pt appears withdrawn. Engaged in therapeutic discussion regarding goals of care. Pt reports his goals remain the same of focusing on comfort and peacefult, natural passing. Discussed hospice with Pt noding his head up and down indicating yes but does not verbalize any thoughts regarding hospice. Discussed completing a POLST. Pt reports wishes to have further discussion regarding POLST and hospice when his is present. Pt reports no concerns at this time. Spoke with Bedside RN Dayan and discussed case. Spoke with Caremanager Amanda and [employer] Finishing Room Supervisor Eloisa. Relayed Pt's wishes and discussed case. Palliative Care will remain available.
--- NOTE | 2019-07-02 15:58 | NUR ---
Routine spiritual care note: I met with Keegan and his , Jesús, at bedside. Keegan said very little to me. Jesús wanted prayer for God to intervene with help. She is quite worried about taking Keegan home. 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 No family local. Jesús states that all of their friends have their own health concerns and are isolating due to Covid. She has no one to help her care for Keegan at home. They have been for over 60 years. Keegan just states that he wishes "it was over" and is bewildered that he is still alive. I provided some job counselor, suggesting he may have uncompleted work--possibly forgiveness. He perked up a bit with this idea. Regardless, both appeared to benefit from prayer and spiritual encouragement. I will remain available.
--- NOTE | 2019-07-02 16:30 | NUR ---
SHIFT SUMMARY PT GIVEN BEDBATH THIS SHIFT AFTER TOILETING ON THE BSC. LARGE BM. NO SIGNS OF BLOOD IN STOOL. PT TREATED FOR A ESCOBAR THIS AM. DENIES PAIN OTHERWISE THROUGHOUT SHIFT. PT SEEN BY FRANDY & PALLIATIVE CARE THIS SHIFT. DC PLANNING INVOLVED IN PLACEMENT. PT VERY FLAT, BUT COOPERATIVE WITH CARE AND REPOSITIONS. WILL CONITNUE TO MONITOR FOR COMFORT UNTIL TURNOVER IS COMPLETE.
--- NOTE | 2019-07-02 21:09 | NUR ---
PT CO HEADACHE 9 /10 SCALE TOOK TYLENOL LIQUID 650 MG PO & LORAZAPAM 1 MG PO TO PROMOTE REST RELAXATION. ON ROOM AIR DENIES DYSPNEA.
--- NOTE | 2019-07-03 00:55 | NUR ---
RESTING QUIETLY AFTER TYLENOL FOR HEADACHE & 1 MG PO ATIVAN. CAESAR PATENT.
[2019-07-03] MEDS ORDERED: ACET325UDC PO (10:41)
[2019-07-03] MEDS ORDERED: ATROPINE 0.01%-10 ML SL (10:42)
[2019-07-03] MEDS ORDERED: DOCU100 PO (10:42)
[2019-07-03] MEDS ORDERED: Ativan1 MG PO (10:43)
[2019-07-03] MEDS ORDERED: Duoneb 2.5-0.5 M3 ML INH (10:43)
[2019-07-03] MEDS ORDERED: MIRALAX17 GM PO (10:44)
[2019-07-03] MEDS ORDERED: PROM25 PO (10:44)
[2019-07-03] MEDS ORDERED: Transderm-Scop1 EACH TD (10:45)
[2019-07-03] MEDS ORDERED: OXYCODONE10 MG/0.5 PO (10:49)
--- NOTE | 2019-07-03 11:59 | NUR ---
Pt resting in bed upon arrival. Pt denies pain, dyspnea, and nausea at this time. Pt does report feeling depressed. Pt states "I'm not suppose to be here right now", "I should be ". Continued therapeutic listening and validated Pt's concerns. Discussed antidepressants and Pt is agreeable if appropriate. Called and spoke with Dr Cleveland and relayed Pt's depression. Dr Cleveland will place order for antidepressant. Pt's Jesús arrives to Pt's room. This RN engaged in therapeutic listening as Jesús expresses concerns of not knowing what the plan is. Jesús asks "Are they going to let him here". Reminded Jesús of conversation that took place with Caremanager. Jesús reports not remembering this conversation. Jesús engages in discussion regarding her diabetes and tells the same story from last week of difficulty with low blood sugars and Pt helping her with diabetes management. Jesús states "I want hospice to pay for a caregiver that I have in mind". This RN reminded Jesús that hospice does not pay for caregivers. Jesús appears to become frustrated and states "What about our insurance"? This RN requested to elaborate on question. Jesús begins to discuss converage and then out of the blue engages in discussion regarding her diabetes management seeming to forget orginal topic of discussion and is no longer raising her voice. Spoke with Hewitt General Cleaner and reported concerns regarding 's confusion and appropriateness. Eloisa will report to Dr Cleveland. Palliative Care will remain available.
--- NOTE | 2019-07-03 12:52 | NUR ---
Spiritual care visit conducted. Patient is lying in bed and alert. Patient talks about how frustrated and depressed he is. I talk with patient his bijal tradition and views about purpose and meaning. We talk about looking forward to what God may be up to in each day, about the gift from God each day is and about the possibility that there are people that God might want to share his love with through the patient yet. 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 I normalize patient's experience and provide prayer. Patient responds thoughtfully and voices appreciation for the spiritual care visit.
--- NOTE | 2019-07-03 17:05 | NUR ---
SHIFT SUMMARY PT VERY FLAT/DEPRESSED THROUGHOUT SHIFT. NO CHANGE IN AFFECT FROM YESTERDAY. DR. CACERES ASSESS SERTRALINE TO EMAR TO HELP. PT PLANNED TO DC TO SNF TOMORROW PER DC PLANNING FOR RESPITE CARE. THEN HOME ON HOSPICE. PT DENIED PAIN/NAUSEA/DISCOMFORT THROUGHOUT SHIFT. PT AGREEABLE TO REPOSITIONS OCCATIONALLY. WILL CONTINUE TO MONITOR UNTIL TURNOVER IS COMPLETE. LUIZ SIGNED & COPY IN CHART.
--- NOTE | 2019-07-03 20:28 | NUR ---
PT alert less flat. Discharge planned on Hospice Respite tomorrow. PT's unable to care for him at home, no Family in area. Medicated for pain headache 7.5/10 & mild anxiety with 1 mg oral ativan to promote rest & relaxation. PT requests CPAP use at says he has used for 10 years at home. Greer cath patent & draining. Turned & repositioned to decrease pressure. Skin pale eccymotic & dry. uses only sheet for covering.
--- NOTE | 2019-07-04 07:23 | NUR ---
slept all night used CPAP. To be DC today on Hospite respite as unable to care for PT, quiet. Medicated for chronic headache & anxiety x 1 with good effect.
--- NOTE | 2019-07-04 08:49 | NUR ---
AM ASSESSMENT- PT SITTING UP IN BED EATING BREAKFAST. PT DENIES ANY PAIN OR OTHER COMPLAINTS. LS WITH RHONCHI WITH SOME SCATTERED WHEEZES, ON RA. HRR. MAYNARD PATENT AND DRAINING. PT DENIES ANY REQUESTS AT THIS TIME. WILL CONT TO MONITOR.
--- NOTE | 2019-07-04 11:38 | NUR ---
Spiritual care visit conducted. Patient talks about his disappointment about still being alive. Patient tells me that he is not depressed just disappointed. We talk about what he is most looking forward to about dying which led to a long conversation about blaine Wander's presence and reunion with friends and family who have before him. Patient assures me that he has lived a good life and that he is just "ready." We talk about reasons for being "here" still. We discuss the idea that the same God he is looking forward to being with is the same God who has him on this planet for a purpose. I listen empathically and provide pastoral veterans' counselor and prayer. Patient participates vocally in the prayer and remains restful a quiet after the prayer. I will continue to remain available to patient and family.
--- NOTE | 2019-07-04 11:49 | NUR ---
Pt resting in bed upon arrival. Pt denies discomfort at this time. Offered therapeutic listening as Pt expresses his concerns. Pt states he is concerned that he may not survive the trip to the facility or may not survive the trip back home due to being so weak. Validated concerns and continued therapeutic listening. Palliative Care will remain available.
--- NOTE | 2019-07-04 17:06 | NUR ---
SHIFT SUMMARY- PT COMFORT CARE. PT DENIES ANY COMPLAINTS T/O THE DAY. PT REMAINS ON RA. 1-2 ASSIST UP TO BSC, BM TODAY. MAYNARD CATHETER IN PLACE, PATENT AND DRAINING. POSS D/C TO [facility] TOMORROW AM ON HOSPICE.
--- NOTE | 2019-07-04 19:44 | NUR ---
PT continues with poor appetite declines supplements or snacks. Greer patent drainging julio urine. PT verbalized he is going to DC to SNF on Hospice Respite. He has flat affect but able to communicate. Started antidepressant yesterday. PT on room air using hospital supplied CPAP at . Uses trapeze to assist 2 staff with bed repositiong. Skin very pale dry & has ecchymosis & scarring. Continues with just a sheet for covering.
--- NOTE | 2019-07-05 05:43 | NUR ---
PT continues to rest quietly through [facility] with cpap running. Medicated x 1 with tylenol for ESCOBAR with good relief. Medicated x 1 for anxiety with good relief with lorazapam 1 mg po. Planned to dc to respite at [facility] yesterday, dc delayed. Able to communicate. Minimal oral intake in 12 hour shift, bites sips.
--- NOTE | 2019-07-05 10:46 | NUR ---
Upon having a conversation with Jil Cleveland, Palliative Care RN, Chris, patient's RN and patient's Receiving Associate Store, I visit patient. I talk to patient about going to [facility] and the benefits for Jesús and the benefits of higher level of care at [facility]. Patient tells me a story about his father and his bad experience at [facility] and about his desire to be at home if he can't stay in the hospital. Patient's ultimate goal is that he wants to and "go to [facility]." I listen empathically and provide prayer. Patient verbalizes appreciation for the prayer.
--- NOTE | 2019-07-05 10:57 | NUR ---
Spoke with Bedside RN Linda, Chaplain Negron, Dr Cleveland, and discussed case. Pt is refusing D/C to [facility]. Dr Cleveland reports Pt will be D/C home today. Pt resting in bed upon arrival. Pt denies pain and dyspnea. Offered therapeutic listening as Pt expresses frustration regarding not being able to stay. Validate Pt's concerns and offered continued listening. Pt becomes withdrawn and ends conversation. Attempted to call Pt's nephew Chris who lives in [place] and was visiting with Pt last week. Unable to leave message due to voicemail not set up. Palliative Care will remain available.
--- NOTE | 2019-07-05 16:40 | NUR ---
SHIFT SUMMARY- PT IS A/O, PLESANT AND COOPERATIVE. HE WAS GOING TO DISCHARGE TO [facility] TODAY, BUT PT DID NOT WANT TO GO THERE. HE IS STAYING ONE MORE NIGHT AND PLANNING ON DISCHARGING HOME TOMORROW, WITH HOSPICE. HE REFUSED HIS LUNCH. HE STOOD AND PIVIOTED TO THE BEDSIDE COMMODE AND HAD A BOWEL MOVMENT. HE HAS A MAYNARD THAT IS PATIENT AND DRAINING WELL. HE HAS DARK COLORED URINE. HE DENIES ANY PAIN AT THIS TIME.
--- NOTE | 2019-07-06 05:15 | NUR ---
SHIFT SUMMARY NO ACUTE CHANGES TO REPORT THIS SHIFT. PT HAS RESTED OF THE NIGHT. PT REQUESTS TYLENOL FOR A ESCOBAR AND ATIVAN FOR SLEEP EARLIER IN THE SHIFT. MAYNADR IN PLACE PATENT AND DRAINING PINK TINGED URINE, UNCHANGED FROM PRIOR SHIFTS. PT A/OX4, PLESANT MAKES NEEDS KNOWN. PLAN IS FOR DC TODAY. BED IN LOWEST POSITION, CALL LIGHT WITHIN REACH. WILL CONTINUE TO MONITOR AND REPORT TO ONCOMING RN.
--- NOTE | 2019-07-06 10:40 | NUR ---
Spiritual care visit conducted. 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 As I facilitate the life, I highlight all the victories, the beauty of what the seasons of struggle produced and how the hand of God the blessed and sustained he and Jesús. Patient states that he is please to go to his house and to have hospice as part of that plan. Patient still emphasizes his desire to leave this life and be with Adrian but he has settled into the fact that there be some living left to do. I provide companionship and prayer and patient is very complimentary of the my time and care.
--- NOTE | 2019-07-06 14:52 | NUR ---
DISCHARGE SUMMARY PT DISCHARGED HOME ON HOSPICE. NO IV IN PLACE AT TIME OF DC. BELONGINGS RETURNED. HARD SCRIPTS GIVEN TO TRANSPORT SERVICE AT THAT TIME. COPY IN CHART.
== END 2019-07-06 13:30 | disposition hospice, home (50) | DRG 356 ==
LOC: ER 10:04 → ICUE 12:37 → ICUW 12:37 → PCU 12:37 → ICUW 06-14 19:07 → PCU 06-15 17:46 → ICUE 06-20 15:55 → MEDS 06-22 14:11
PROVIDERS: Emergency Medicine; Family Medicine; Internal Medicine; Internal Medicine Gastroenterology; Nurse Practitioner Acute Care; Student in an Organized Health Care Education/Training Program; ADMIT Internal Medicine
PROC: 0D588ZZ Destruction of Small Intestine, Via Natural or Artificial Opening Endoscopic (ICD-10-PCS; principal; 2019-06-12 07:30)
PROC: 30233N1 Transfusion of Nonautologous Red Blood Cells into Peripheral Vein, Percutaneous Approach (ICD-10-PCS; 2019-06-12 07:30)
PROC: B4141ZZ Fluoroscopy of Superior Mesenteric Artery using Low Osmolar Contrast (ICD-10-PCS; 2019-06-14)
PROC: 04L53DZ Occlusion of Superior Mesenteric Artery with Intraluminal Device, Percutaneous Approach (ICD-10-PCS; 2019-06-14)
PROC: 0W3P8ZZ Control Bleeding in Gastrointestinal Tract, Via Natural or Artificial Opening Endoscopic (ICD-10-PCS; 2019-06-15 14:00)
DX: K63.81 Dieulafoy lesion of intestine (principal); K55.21 Angiodysplasia of colon with hemorrhage; I48.21 Permanent atrial fibrillation; Z51.5 Encounter for palliative care; I10 Essential (primary) hypertension; E78.5 Hyperlipidemia, unspecified; K21.9 Gastro-esophageal reflux disease without esophagitis; J43.9 Emphysema, unspecified; Z90.49 Acquired absence of other specified parts of digestive tract; G47.33 Obstructive sleep apnea (adult) (pediatric); Z99.81 Dependence on supplemental oxygen; N31.9 Neuromuscular dysfunction of bladder, unspecified; K44.9 Diaphragmatic hernia without obstruction or gangrene; E78.00 Pure hypercholesterolemia, unspecified; N40.0 Benign prostatic hyperplasia without lower urinary tract symptoms; Z68.32 Body mass index [BMI] 32.0-32.9, adult; F32.9 Major depressive disorder, single episode, unspecified
CPT/HCPCS: 36245; 36246; 36247; 36415; 36430; 36569; 37244; 51701; 71045; 74175; 75726; 75774; 78278; 80048; 80053; 80069; 81001; 82272; 82330; 82728; 83540; 83550; 83605; 83735; 83880; 84484; 85007; 85014; 85018; 85025; 85027; 85610; 86850; 86900; 86901; 86923; 87040; 87077; 87086; 87186; 88184; 88185; 93005; 93010; 94640; 94660; 94760; 94762; 96361; 96365; 96375; 97110; 97116; 97162; 97166; 97530; 97535; 99152; 99153; 99285-25; A9270; A9560; C1751; C1760; C1769; C1887; C1894; C9113; J0696; J1610; J1644; J1940; J2001; J2060; J2250; J2370; J2704; J3010; J3480; J7030; J7040; J7050; J7120; P9016; Q9967

== ENCOUNTER → 2019-09-29 | Outpatient (CLI) | payer OTHER ==
[~2019-09-29] MED LIST changes: +ACET325UDC PO; +ALBU2.5V5 NEB; +ATROPINE 0.01%-10 ML SL; +Ativan1 MG PO; +DOCU100 PO; +Duoneb 2.5-0.5 M3 ML INH; +MIRALAX17 GM PO; +OXYCODONE10 MG/0.5 PO; +PROM25 PO; +Transderm-Scop1 EACH TD
[2019-09-29 10:21] LABS: Hematocrit 47.5 % (37.0-53.0); Hemoglobin 13.9 g/dL (13.5-17.5)
== END | disposition home or self-care (01) ==
LOC: LAB SHORT 10:11 → LAB 10:11
PROVIDERS: Internal Medicine
DX: K29.71 Gastritis, unspecified, with bleeding (principal)
CPT/HCPCS: 85014; 85018